=== PATIENT | male | born 1970 ===

== ENCOUNTER → 2016-04-05 | Outpatient (CLI) | payer BC ==
--- NOTE | 2016-04-05 13:34 | US ---
EXAMINATION TYPE: US thyroid st tissue head/neck DATE OF EXAM: 04/05/2016 1:21 PM COMPARISON: NONE CLINICAL HISTORY: R59.0 localized lymph nodes enlarged. Left lateral neck soreness, palpable area Findings: Area of palpable lump and soreness scanned. At palpable area, enlarged lymph node seen = 2 .0 x 0.8 x 0.6 cm. Contralateral image taken. Area of soreness scanned, no abnormality seen. IMPRESSION: Lymph node left neck at the site of clinical concern with short axis measurement being w ithin the normal range.
== END ==
LOC: RADUSWWP 12:56
PROVIDERS: ATTEND Physician Assistant
DX: R59.0 Localized enlarged lymph nodes (principal)
CPT/HCPCS: 76536

== ENCOUNTER → 2016-05-31 | Outpatient (CLI) | payer BC | END | disposition home or self-care (01) | LOC: PTMAIN 15:29 | PROVIDERS: ATTEND Otolaryngology | DX: J37.0 Chronic laryngitis (principal) | CPT/HCPCS: 31579 ==

== ENCOUNTER → 2016-05-31 | Outpatient (CLI) | payer BC ==
--- NOTE | 2016-05-31 17:12 | CT ---
EXAMINATION TYPE: CT soft tissue neck w con DATE OF EXAM: 05/31/2016 4:09 PM COMPARISON: NONE HISTORY: Hoarseness and throat soreness CT DLP: 879 mGycm CONTRAST: Patient injected with 100 mL of Omnipaque 300. TECHNIQUE: Axial images at 3 mm thick sections. Reconstructed images in the coronal plane and sagitt al plane are reviewed. FINDINGS: Limited CT sections are obtained the lung apices. The lung apices appear clear. CT neck: The torus tubarius and fossa of Rosenmuller are normal. Clothing Sales Assistant spaces are normal. Para nasal sinuses and mastoid air cells are clear. Parotid glands appear normal and symmetrical. Submandibular glands, are normal. Parapharyngeal spac es are normal. No suspicious adenopathy is evident. The hypopharynx appears within normal limits. Vocal cord level appear symmetrical. Thyroid as visualized is normal. Osseous structures are normal. No suspicious masses identified within the neck. IMPRESSIONS: 1. Normal CT neck
== END | disposition home or self-care (01) ==
LOC: RADCTMAIN 15:51
PROVIDERS: ATTEND Otolaryngology
DX: R22.1 Localized swelling, mass and lump, neck (principal)
CPT/HCPCS: 70491; Q9967

== ENCOUNTER 2016-06-10 09:22 | Day surgery (SDC) | payer BC ==
[2016-06-07 08:45] VITALS: BMI 34.0
--- NOTE | 2016-06-10 07:08 | HP ---
DATE OF ADMISSION: CHIEF COMPLAINT: Chronic laryngitis. HISTORY OF PRESENT ILLNESS: The patient is a pleasant 46-year-old male who was recently seen in my office complaining of having intermittent loss of his voice. The patient states that he constantly clears his throat because of the excessive mucus/phlegm. In addition to this, he has had episodes of intermittent hoarseness for the past 6 months and in some cases, he states he has completely lost his voice. He smokes approximately 1 pack of cigarettes per day but has recently stopped smoking and was advised to permanently quit for obvious health reasons. At the time the patient was seen in my office, clinical examination which included indirect laryngoscopy and also a video stroboscopy revealed evidence of a suspicious lesion along the right true vocal cord posteriorly. Because of the patient's history of heavy smoking it was recommend he undergo a suspension microlaryngoscopy with biopsy and CO2 laser of this lesion under general anesthesia. Past medical history reveals he has an ALLERGY TO MORPHINE. Current medications include Zyban that is to help stop smoking, and Lunesta. The review of systems is completely unremarkable. The patient also states he has ALLERGY TO SULFA. Previous surgeries include cervical fusion, lower back laminectomy, and colonoscopy. Patient is a very pleasant 46-year-old male who is alert and cooperative. HEENT EXAMINATION: Patient is normocephalic. Tympanic membranes are normal. Middle ear spaces are free of any fluid or infection. Pupils are equal, round, and reactive to light and accommodation. Extraocular movements are within normal. Intranasal examination reveals severe septal deviation to the left with compensatory hypertrophy of the inferior turbinates bilaterally. Oropharynx including indirect laryngoscopy is as described above with respect to the fact that there is a suspicious lesion on the right true vocal cord posteriorly. Palpation of the neck, cranial nerves II through XII and remainder of the head and neck exam are all within normal limits. Chest/cardiovascular: Both lung frankel are clear to percussion and auscultation. Patient is in regular sinus rhythm. S1 and S2 are present without any murmurs, S3s or S4s. Peripheral pulses are bilaterally symmetrical and within normal limits. ABDOMEN: There is no evidence of any masses, megaly or tenderness. The abdomen is soft. Skin is unremarkable. Musculoskeletal and neurological are within normal limits. Rectal examination: The rectal exam is deferred at this time as the patient has done a regular basis at his family physician's office. The remainder of physical exam is unremarkable. IMPRESSION: Chronic laryngitis with laryngeal lesion of the right true vocal cord. PLAN: The patient is scheduled undergo a suspension microlaryngoscopy with biopsy and laser of lesion of the right true vocal cord under general anesthesia. Attention RNs in the presurgical area: I have not ordered nor has my office ordered any presurgical prophylactic antibiotics for this patient. The only medication that I have ordered presurgically is for this patient to receive 1000 mg of Ofirmev which is to be given once an intravenous line has been established. If the pharmacy department sends any presurgical prophylactic antibiotics to the presurgical area for this patient, they should be returned and the patient's account should be credited appropriately. I have explained the operation/procedure to the patient, including the risks, benefits, side effects, alternative therapies (including not receiving the proposed treatment or service), the likelihood of the patient achieving his/her goals, and potential recuperation problems for the procedure/sedation/analgesia, as well as any blood products, if indicated. I also explained to the patient the risks, benefits, and side effects of the alternatives, as well as the risks related to not receiving the proposed procedure, care treatment or services.
[~2016-06-10 09:22] MED LIST: DEXAMETHASONE SOD PHOSPHATE 10 MG/ML 1 ML VIAL IV ONE; HYDROmorphone 1 MG/ML 1 ML SYRINGE IVP PRN; LACTATED RINGERS 1,000 ML IV SCH; LIDOCAINE 1% 20 ML VIAL (10MG/ML) FOR IV START INTRADERMA PRN; MIDAZOLAM 2 MG/2 ML VIAL IV PRN; ONDANSETRON 4 MG/2 ML VIAL IVP ONE; Pre Op ABX Message 1 EACH MISC MISCELLANE ONE; SCOPOLAMINE 1.5MG/72HR PATCH TRANSDERM ONE
[2016-06-10 10:09] VITALS: TEMP 98
[2016-06-10] MEDS ORDERED: fentaNYL (PF) 50 MCG/ML 2 ML AMP ONE (10:49)
[2016-06-10] MEDS ORDERED: GLYCOPYRROLATE 0.2 MG/ML 2 ML VIAL ONE (10:49)
[2016-06-10] MEDS ORDERED: LIDOCAINE 1% INJ 10MG/ML (20 ML MDV) ONE (10:49)
[2016-06-10] MEDS ORDERED: DEXAMETHASONE SOD PHOS (MDV) 100 MG/10 ML VIAL ONE (10:49)
[2016-06-10] MEDS ORDERED: SUCCINYLCHOLINE CHLORIDE 100 MG/5 ML SYR IV ONE (10:49)
[2016-06-10] MEDS ORDERED: ROCURONIUM BROMIDE 10 MG/ML 10 ML VIAL IV ONE (10:49)
[2016-06-10] MEDS ORDERED: PROPOFOL 10 MG/ML 20 ML VIAL IV ONE (10:49)
[2016-06-10] MEDS ORDERED: NEOSTIGMINE 1 MG/ML 10 ML VIAL ONE (10:49)
[2016-06-10] MEDS ORDERED: MIDAZOLAM 2 MG/2 ML VIAL ONE (10:49)
[2016-06-10] MEDS ORDERED: ACETAMINOPHEN IV (For NPO) 1,000 MG in EMPTY BAG 1 BAG IVPB ONE (11:25)
[2016-06-10 12:20] VITALS: RESP 18
[2016-06-10 12:37] VITALS: BP 141/99; PULSE 69
--- NOTE | 2016-06-10 17:13 | OP ---
DATE OF SERVICE: 06/10/2016 SURGEON: JENI MELCHOR MD CEMENT MASON HELPER: PREOPERATIVE DIAGNOSIS: Suspicious polypoid lesion of the right anterior one third true vocal cord. POSTOPERATIVE DIAGNOSIS: Suspicious polypoid lesion of the anterior one third of the right true vocal cord; final pathology is pending. OPERATION: Suspension microlaryngoscopy with biopsy and CO2 laser of polyploid-like lesion of the right true vocal cord. ANESTHESIA: General. ESTIMATED BLOOD LOSS: SPECIMENS REMOVED: COMPLICATIONS: None. OPERATIVE PROCEDURE: The patient was placed on the operating table in supine position, and after uneventful induction and endotracheal intubation, satisfactory general anesthesia was obtained. Next, the patient was draped in the usual and customary fashion. Following this, the laryngoscope was introduced into the patient's oropharynx, and the entire hypopharynx, including the right and left piriform sinus, base of tongue, valleculae and epiglottis, were inspected and found to be free of any suspicious lesions. Following this, the tip of the laryngoscope was presented at the laryngeal introitus and next the Lewy apparatus was attached to the handle of the laryngoscope and the laryngoscope was then suspended on the patient's chest. Next, using the Zeiss operating microscope and under direct magnified vision, one could see that there was a rather large polypoid-like lesion located on the anterior third of the right true vocal cord near the anterior commissure. The lesion appeared to arise from the medial surface of the cord and extend to the underside of the right true vocal cord. Therefore, using up-biting microlaryngeal forceps and with multiple passes, several pieces of this lesion were obtained. These were sent in formalin to Pathology for permanent sectioning. The remaining portion of the lesion, which was mostly the base, was vaporized using the CO2 laser at the usual setting of approximately 7 ladd. Further inspection showed that the lesion had been completely removed. In addition to this, some of the eschar was removed with a pair of up-biting forceps. At this point there did not appear to be any remnants of the lesion, and therefore the procedure was terminated. During the procedure the patient was given a total of 10 mg of Decadron intraoperatively to reduce any postoperative laryngeal edema. The procedure was terminated. There were no intraoperative complications. The patient tolerated the procedure well and the patient was returned to the recovery room in satisfactory condition. Final pathology is pending.
== END 2016-06-10 12:44 | disposition home or self-care (01) ==
LOC: OR 09:22
PROVIDERS: ATTEND Otolaryngology
DX: J38.1 Polyp of vocal cord and larynx (principal); J37.0 Chronic laryngitis; F17.210 Nicotine dependence, cigarettes, uncomplicated; Z79.899 Other long term (current) drug therapy; Z88.5 Allergy status to narcotic agent; Z88.2 Allergy status to sulfonamides
CPT/HCPCS: 88305; 31536; J2250; J1100 ×2; J2710; J2405; J2001; J3010; J0131; J0330; J2704

== ENCOUNTER 2017-02-22 13:44 | Emergency (ER) | payer BC ==
[2017-02-22] MEDS ORDERED: IBUPROFEN 800 MG TAB PO STA (14:34)
--- NOTE | 2017-02-22 14:37 | ED ---
General Adult HPI - General Chief complaint: Abdominal Pain Stated complaint: Rt side pain Time Seen by Provider: 02/22/17 14:27 Source: patient, RN notes reviewed, old records reviewed Mode of arrival: ambulatory Limitations: no limitations - History of Present Illness Initial comments: 46-year-old male presents for evaluation of left flank pain and lower abdominal pain. Patient's pain began suddenly approximately 2-1/2 hours ago. Pain has come and gone, currently 3 out of 10 and tolerable. Pain was severe at the onset, sharp. Patient also had some nausea, no vomiting. No preceding fever or chills. No change in bowels. Patient has past medical history of kidney stone several years ago, this was on the right. Patient is not currently on any medication. - Related Data Home Medications Medication Instructions Recorded Confirmed Eszopiclone [Lunesta] 3 mg PO HS 06/07/16 02/22/17 Ibuprofen [Advil] 800 mg PO Q8HR PRN 06/07/16 02/22/17 Previous Rx's Medication Instructions Recorded Ibuprofen [Motrin] 600 mg PO Q8HR PRN #24 tab 02/22/17 Allergies Allergy/AdvReac Type Severity Reaction Status Date / Time morphine Allergy Rash/Hives Verified 02/22/17 14:23 Review of Systems ROS Statement: Those systems with pertinent positive or pertinent negative responses have been documented in the HPI. ROS Other: All systems not noted in ROS Statement are negative. Past Medical History Past Medical History: No Reported History Additional Past Medical History / Comment(s): Recently having hoarseness and throat discomfort. History of Any Multi-Drug Resistant Organisms: None Reported Past Surgical History: Back Surgery, Orthopedic Surgery Additional Past Surgical History / Comment(s): Neck and ankle surgery with plates. Past Anesthesia/Blood Transfusion Reactions: No Reported Reaction Past Psychological History: No Psychological Hx Reported Smoking Status: Current every day smoker Past Alcohol Use History: None Reported Past Drug Use History: None Reported - Past Family History Mother Family Medical History: No Reported History Father Family Medical History: Cancer Additional Family Medical History / Comment(s): Prostate cancer General Exam Limitations: no limitations Head exam: Present: atraumatic, normocephalic Eye exam: Present: normal appearance, PERRL ENT exam: Present: normal exam Neck exam: Present: normal inspection. Absent: tenderness, meningismus Respiratory exam: Present: normal lung sounds bilaterally. Absent: respiratory distress, wheezes Cardiovascular Exam: Present: regular rate, normal rhythm, bradycardia GI/Abdominal exam: Present: soft. Absent: distended, tenderness, guarding Extremities exam: Present: normal inspection, full ROM, normal capillary refill. Absent: pedal edema Back exam: Present: normal inspection. Absent: tenderness, CVA tenderness (R), CVA tenderness (L) Neurological exam: Present: alert, oriented X3, CN II-XII intact. Absent: motor sensory deficit Psychiatric exam: Present: normal affect, normal mood Skin exam: Present: warm, dry, intact. Absent: cyanosis, diaphoretic Course Vital Signs 02/22/17 14:16 Temperature 98.4 F Pulse Rate 61 Respiratory 16 Rate Blood Pressure 169/103 O2 Sat by Pulse 99 Oximetry Medical Decision Making - Medical Decision Making 46-year-old male presenting with left flank pain. Patient does not want an IV or IV pain medication. History is consistent with nephrolithiasis. CT is obtained, shows a 9.4 mm stone in the left renal calyx, no obstructing stones, patient likely passed small stone prior to CT. He is nearly pain-free in the emergency department. He is given a urine strainer and will follow-up with urology. He is instructed that this 9.4 mm stone will likely not pass on its own. - Lab Data Lab Results 02/22/17 Range/Units 14:27 Urine Color Yellow Urine Appearance Clear (Clear) Urine pH 5.0 (5.0-8.0) Ur Specific [place] 1.014 (1.001-1.035) Urine Protein Negative (Negative) Urine Glucose (UA) Negative (Negative) Urine Ketones Negative (Negative) Urine Blood Small H (Negative) Urine Nitrite Negative (Negative) Urine Bilirubin Negative (Negative) Urine Urobilinogen <2.0 (<2.0) mg/dL Ur Leukocyte Esterase Negative (Negative) Urine RBC 6 H (0-5) /hpf Urine WBC <1 (0-5) /hpf Amorphous Sediment Rare H (None) /hpf Hyaline Casts 3 H (0-2) /lpf Urine Mucus Rare H (None) /hpf Disposition Clinical Impression: Calculus of kidney Disposition: HOME SELF-CARE Condition: Good Instructions: Kidney Stones (ED) Prescriptions: Ibuprofen [Motrin] 600 mg PO Q8HR PRN #24 tab PRN Reason: Pain Referrals: Sp Connors DO [Primary Care Provider] - 1-2 days Qasim Cam MD [STAFF PHYSICIAN] - 1-2 days Time of Disposition: 15:42
[2017-02-22 14:54] LABS: Amorphous Sediment,Urine Rare /hpf; Appearance,Urine Clear (Clear); Bilirubin,Urine Negative (Negative); Blood,Urine Small (Negative); Color,Urine Yellow; Glucose,Urine (UA) Negative (Negative); Hyaline Casts,Urine 3 /lpf (0-2); Ketones,Urine Negative (Negative); Leukocyte Esterase,Urine Negative (Negative); Mucus,Urine Rare /hpf; Nitrite,Urine Negative (Negative); Protein,Urine Negative (Negative); RBC,Urine 6 /hpf (0-5); Specific Gravity,Urine 1.014 (1.001-1.035); Urobilinogen,Urine <2.0 mg/dL (<2.0); WBC,Urine <1 /hpf (0-5)
--- NOTE | 2017-02-22 15:28 | CT ---
EXAMINATION TYPE: CT abdomen pelvis wo con DATE OF EXAM: 02/22/2017 COMPARISON: NONE HISTORY: Right flank pain CT DLP: 1224 mGycm Automated exposure control for dose reduction was used. TECHNIQUE: Helical acquisition of images was performed from the lung bases through the pelvis. FINDINGS: LUNG BASES: No significant abnormality is appreciated. LIVER/GB: No significant abnormality is appreciated. PANCREAS: No significant abnormality is seen. SPLEEN: No significant abnormality is seen. ADRENALS: No significant abnormality is seen. KIDNEYS: Multiple nonobstructing calculi identified within the left kidney. The largest of which is w ithin an interpolar calyx measuring 9.4 mm. There is also at least one or 2 smaller calculi identifie d in the superior pole calyces. No hydronephrosis is identified. The appearance of the right kidney i s unremarkable. There is no nephrolithiasis, hydronephrosis or other abnormality identified. FREE AIR: No free air is visualized RETROPERITONEAL ADENOPATHY: None visualized REPRODUCTIVE ORGANS: No significant abnormality is seen URINARY BLADDER: No significant abnormality is seen. PELVIC ADENOPATHY: None visualized. OSSEOUS STRUCTURES: No significant abnormality is seen. BOWEL: No significant abnormality is seen. The appendix is visualized and is normal OTHER: None IMPRESSION: NONOBSTRUCTING NEPHROLITHIASIS IS IDENTIFIED IN THE LEFT KIDNEY. THE APPENDIX IS VISUALIZED, AND IS NORMAL.
[2017-02-22 16:09] VITALS: BP 154/78; PULSE 57; RESP 17; TEMP 98.7
== END 2017-02-22 16:08 | disposition home or self-care (01) ==
LOC: EC 13:44
DX: N20.0 Calculus of kidney (principal); R00.1 Bradycardia, unspecified; F17.200 Nicotine dependence, unspecified, uncomplicated; Z88.5 Allergy status to narcotic agent; Z79.899 Other long term (current) drug therapy
CPT/HCPCS: 74176; 81001; 99284

== ENCOUNTER 2017-02-24 07:49 | Emergency (ER) | payer BC ==
[2017-02-24 07:57] VITALS: TEMP 97.3
[2017-02-24] MEDS ORDERED: ONDANSETRON 4 MG/2 ML VIAL IVP STA (08:41)
[2017-02-24] MEDS ORDERED: KETOROLAC 60 MG/2 ML VIAL IVP STA (08:41)
[2017-02-24] MEDS ORDERED: HYDROmorphone 2 MG/ML 1 ML SYRINGE IVP STA (08:41)
[2017-02-24 08:49] LABS: Basophils # (A) 0.1 k/uL (0-0.2); Basophils % (A) 1 %; Eosinophils # (A) 0.3 k/uL (0-0.7); Eosinophils % (A) 3 %; HCT 51.8 % (39.0-53.0); HGB 18.6 gm/dL (13.0-17.5); Lymphocytes # (A) 2.1 k/uL (1.0-4.8); Lymphocytes % (A) 21 %; MCH 31.6 pg (25.0-35.0); MCHC 35.9 g/dL (31.0-37.0); Mean Platelet Volume 7.2; Monocytes # (A) 0.4 k/uL (0-1.0); Monocytes % (A) 4 %; Neutrophils # (A) 6.8 k/uL (1.3-7.7); Neutrophils % (A) 70 %; Platelet Count 309 k/uL (150-450); RBC 5.88 m/uL (4.30-5.90); WBC 9.8 k/uL (3.8-10.6)
[2017-02-24 08:53] LABS: Appearance,Urine Clear (Clear); Bilirubin,Urine Negative (Negative); Blood,Urine Moderate (Negative); Color,Urine Yellow; Glucose,Urine (UA) Negative (Negative); Ketones,Urine Negative (Negative); Leukocyte Esterase,Urine Negative (Negative); Mucus,Urine Few /hpf; Nitrite,Urine Negative (Negative); PH, Urine 5.5 (5.0-8.0); Protein,Urine Trace (Negative); RBC,Urine 11 /hpf (0-5); Specific Gravity,Urine 1.023 (1.001-1.035); Urobilinogen,Urine <2.0 mg/dL (<2.0); WBC,Urine 2 /hpf (0-5)
--- NOTE | 2017-02-24 08:56 | ED ---
General Adult HPI - General Chief complaint: Abdominal Pain Stated complaint: POSS KIDNEY STONE Time Seen by Provider: 02/24/17 07:50 Source: patient, RN notes reviewed Mode of arrival: ambulatory Limitations: no limitations - History of Present Illness Initial comments: This is a 46-year-old male who presents emergency Department complaining of having been diagnosed with a kidney stone on Friday. Patient states the pain is gotten worse and he has come back in because he cannot stand the pain at this time. Patient states on the left side radiating down to his lower abdomen. Patient states he spoke with urology and they said they had lithotripsy in the area soon. Patient states she's been somewhat nauseated but has not vomited. Patient denies any fever or chills patient denies any diarrhea. - Related Data Home Medications Medication Instructions Recorded Confirmed Eszopiclone [Lunesta] 3 mg PO HS 06/07/16 02/24/17 Previous Rx's Medication Instructions Recorded Ibuprofen [Motrin] 600 mg PO Q8HR PRN #24 tab 02/22/17 Allergies Allergy/AdvReac Type Severity Reaction Status Date / Time morphine Allergy Rash/Hives Verified 02/24/17 08:06 Review of Systems ROS Statement: Those systems with pertinent positive or pertinent negative responses have been documented in the HPI. ROS Other: All systems not noted in ROS Statement are negative. Past Medical History Past Medical History: No Reported History Additional Past Medical History / Comment(s): Recently having hoarseness and throat discomfort. kidney stones History of Any Multi-Drug Resistant Organisms: None Reported Past Surgical History: Back Surgery, Orthopedic Surgery Additional Past Surgical History / Comment(s): Neck and ankle surgery with plates. Past Anesthesia/Blood Transfusion Reactions: No Reported Reaction Past Psychological History: No Psychological Hx Reported Smoking Status: Current every day smoker Past Alcohol Use History: None Reported Past Drug Use History: None Reported - Past Family History Mother Family Medical History: No Reported History Father Family Medical History: Cancer Additional Family Medical History / Comment(s): Prostate cancer General Exam - General Exam Comments Initial Comments: GENERAL: Patient is well-developed and well-nourished. Patient is nontoxic and well- hydrated and is in mild distress. ENT: Neck is soft and supple. No significant lymphadenopathy is noted. Oropharynx is clear. Moist mucous membranes. Neck has full range of motion without eliciting any pain. EYES: The sclera were anicteric and conjunctiva were pink and moist. Extraocular movements were intact and pupils were equal round and reactive to light. Eyelids were unremarkable. PULMONARY: Unlabored respirations. Good breath sounds bilaterally. No audible rales rhonchi or wheezing was noted. CARDIOVASCULAR: There is a regular rate and rhythm without any murmurs gallops or rubs. ABDOMEN: Soft and nontender with normal bowel sounds. No palpable organomegaly was noted. There is no palpable pulsatile mass. SKIN: Skin is clear with no lesions or rashes and otherwise unremarkable. NEUROLOGIC: Patient is alert and oriented x3. Cranial nerves II through XII are grossly intact. Motor and sensory are also intact. Normal speech, volume and content. Symmetrical smile. MUSCULOSKELETAL: Normal extremities with adequate strength and full range of motion. No lower extremity swelling or edema. No calf tenderness. LYMPHATICS: No significant lymphadenopathy is noted PSYCHIATRIC: Normal psychiatric evaluation. Normal interpersonal interactions appears functionally intact in deals appropriately with others. No signs of depression. No signs of anxiety. Limitations: no limitations Course Vital Signs 02/24/17 02/24/17 07:53 09:06 Temperature 97.3 F L Pulse Rate 59 L 56 L Respiratory 18 16 Rate Blood Pressure 151/91 147/97 O2 Sat by Pulse 97 95 Oximetry Medical Decision Making - Medical Decision Making Patient's x-ray shows a kidney stone on the left that appears to be slightly removed from where it was before. I spoke with Dr. Duke he wants to see the patient to do lithotripsy is afternoon. Patient will be back at 2:00 to go to [facility] more outpatient. - Lab Data Result diagrams: 02/24/17 08:30 02/24/17 08:30 Lab Results 02/24/17 02/24/17 02/24/17 Range/Units 08:30 08:30 08:30 WBC 9.8 (3.8-10.6) k/uL RBC 5.88 (4.30-5.90) m/uL Hgb 18.6 H (13.0-17.5) gm/dL Hct 51.8 (39.0-53.0) % MCV 88.0 (80.0-100.0) fL MCH 31.6 (25.0-35.0) pg MCHC 35.9 (31.0-37.0) g/dL RDW 14.0 (11.5-15.5) % Plt Count 309 (150-450) k/uL Neutrophils % 70 % Lymphocytes % 21 % Monocytes % 4 % Eosinophils % 3 % Basophils % 1 % Neutrophils # 6.8 (1.3-7.7) k/uL Lymphocytes # 2.1 (1.0-4.8) k/uL Monocytes # 0.4 (0-1.0) k/uL Eosinophils # 0.3 (0-0.7) k/uL Basophils # 0.1 (0-0.2) k/uL Sodium 140 (137-145) mmol/L Potassium 4.7 (3.5-5.1) mmol/L Chloride 108 H (98-107) mmol/L Carbon Dioxide 22 (22-30) mmol/L Anion Gap 10 mmol/L BUN 16 (9-20) mg/dL Creatinine 1.01 (0.66-1.25) mg/dL Est GFR (MDRD) Af Amer >60 (>60 ml/min/1.73 sqM) Est GFR (MDRD) Non-Af >60 (>60 ml/min/1.73 sqM) Glucose 100 H (74-99) mg/dL Calcium 10.0 (8.4-10.2) mg/dL Total Bilirubin 1.1 (0.2-1.3) mg/dL AST 54 (17-59) U/L ALT 86 H (21-72) U/L Alkaline Phosphatase 80 (38-126) U/L Total Protein 6.8 (6.3-8.2) g/dL Albumin 4.0 (3.5-5.0) g/dL Amylase 53 (30-110) U/L Lipase 82 (23-300) U/L Urine Color Yellow Urine Appearance Clear (Clear) Urine pH 5.5 (5.0-8.0) Ur Specific [place] 1.023 (1.001-1.035) Urine Protein Trace H (Negative) Urine Glucose (UA) Negative (Negative) Urine Ketones Negative (Negative) Urine Blood Moderate H (Negative) Urine Nitrite Negative (Negative) Urine Bilirubin Negative (Negative) Urine Urobilinogen <2.0 (<2.0) mg/dL Ur Leukocyte Esterase Negative (Negative) Urine RBC 11 H (0-5) /hpf Urine WBC 2 (0-5) /hpf Urine Mucus Few H (None) /hpf Disposition Clinical Impression: Calculus of kidney Disposition: HOME SELF-CARE Instructions: Kidney Stones (ED) Referrals: Sp Connors DO [Primary Care Provider] - 1-2 days Time of Disposition: 10:03
[2017-02-24 08:58] LABS: ALT 86 U/L (21-72); AST 54 U/L (17-59); Alkaline Phosphatase 80 U/L (38-126); Amylase 53 U/L (30-110); Anion Gap 10 mmol/L; Blood Urea Nitrogen 16 mg/dL (9-20); Carbon Dioxide 22 mmol/L (22-30); Chloride 108 mmol/L (98-107); Glucose 100 mg/dL (74-99); Lipase 82 U/L (23-300); Potassium 4.7 mmol/L (3.5-5.1); Sodium 140 mmol/L (137-145); Total Bilirubin 1.1 mg/dL (0.2-1.3); Total Protein 6.8 g/dL (6.3-8.2)
[2017-02-24 09:12] VITALS: PULSE 56; RESP 16
--- NOTE | 2017-02-24 09:25 | XR ---
EXAMINATION TYPE: XR KUB DATE OF EXAM: 02/24/2017 COMPARISON: NONE HISTORY: Pain TECHNIQUE: Single supine KUB image of the abdomen is obtained FINDINGS: Small bowel demonstrates no evidence for dilatation or air fluid levels. Gas and fecal material is seen in non-distended colon. No convincing evidence for pneumoperitoneum. 7 mm left renal calculus noted. The lung bases are clear. The osseous structures are intact. IMPRESSION: 1. Overall nonobstructive bowel gas pattern.
[2017-02-24 10:04] VITALS: BP 145/80
[2017-02-24] MEDS ORDERED: HYDROcodone/APAP 5-325MG 1 EACH TAB PO STA (10:04)
[2017-02-24 10:21] LABS: INR 1.2 (<1.2); Prothrombin Time 11.1 sec (9.0-12.0)
--- NOTE | 2017-02-24 15:15 | P.GSHP ---
History of Present Illness H&P Date: 02/24/17 Chief Complaint: Left flank pain The patient originally developed left flank pain on 02/22/2017. The pain was associated with nausea but no vomiting. He presented to the [facility] ER and was noted to have microscopic hematuria. Computed tomography scan of the abdomen and pelvis without IV contrast confirmed a 6 x 8 mm calculus in the mid pole of the left kidney and a 3 mm calculus in the upper pole of the left kidney. There was no evidence of hydronephrosis. The patient's pain improved while he was in the emergency room and it was presumed that he may have passed a calculus prior to coming to the emergency room. The patient was discharged and felt well until early this 3 o'clock this morning when he again experienced severe left flank pain. He returned to the emergency room and a KUB appeared to show the 6 x 8 mm left renal calculus was closer to the ureteropelvic junction. In view of the persistence of the pain the patient has elected to proceed with ESWL treatment. - Constitutional Constitutional: Denies chills, Denies fever - Cardiovascular Cardiovascular: Denies chest pain - Respiratory Respiratory: Denies cough - Gastrointestinal Gastrointestinal: Reports heartburn - Genitourinary (Female) Genitourinary: Reports as per HPI Past Medical History Past Medical History: No Reported History, Cancer (Diagnosed with prostate cancer in 2014 and has been followed with active surveillance. The patient sees Dr. Wilburn.) Additional Past Medical History / Comment(s): Recently having hoarseness and throat discomfort. kidney stones History of Any Multi-Drug Resistant Organisms: None Reported Past Surgical History: Back Surgery, Orthopedic Surgery Additional Past Surgical History / Comment(s): Neck and ankle surgery with plates. Cervical fusion and lumbar disc Past Anesthesia/Blood Transfusion Reactions: No Reported Reaction Past Psychological History: No Psychological Hx Reported Smoking Status: Current every day smoker (Has smoked 1 pack per day for 20 years but says he wants to quit) Past Alcohol Use History: None Reported Past Drug Use History: None Reported - Past Family History Mother Family Medical History: No Reported History Father Family Medical History: Cancer Additional Family Medical History / Comment(s): Prostate cancer Medications and Allergies Home Medications Medication Instructions Recorded Confirmed Type Eszopiclone [Lunesta] 3 mg PO HS 04/28/17 01/15/18 History Ibuprofen [Motrin] 600 mg PO Q8HR PRN #24 tab 02/22/17 02/24/17 Rx Allergies Allergy/AdvReac Type Severity Reaction Status Date / Time morphine Allergy Rash/Hives Verified 02/24/17 08:06 Surgical - Exam Vital Signs Temp Pulse Resp BP Pulse Ox 97.3 F L 59 L 18 151/91 97 02/24/17 07:53 02/24/17 07:53 02/24/17 07:53 02/24/17 07:53 02/24/17 07:53 - General well developed, well nourished, no pain - Neck no lymphadectomy - Respiratory normal expansion, clear to auscultation - Cardiovascular Rhythm: regular Abnormal Heart Sounds: no systolic murmur - Abdomen Abdomen: soft, non tender, no organomegaly - Genitourinary normal penis with no external lesions, testicles non-tender - Psychiatric memory intact Results - Labs 02/24/17 08:30 02/24/17 08:30 Abnormal Lab Results - Last 24 Hours (Table) 02/24/17 02/24/17 02/24/17 Range/Units 08:30 08:30 08:30 Hgb 18.6 H (13.0-17.5) gm/dL Chloride 108 H (98-107) mmol/L Glucose 100 H (74-99) mg/dL ALT 86 H (21-72) U/L Urine Protein Trace H (Negative) Urine Blood Moderate H (Negative) Urine RBC 11 H (0-5) /hpf Urine Mucus Few H (None) /hpf Diabetes panel 02/24/17 Range/Units 08:30 Sodium 140 (137-145) mmol/L Potassium 4.7 (3.5-5.1) mmol/L Chloride 108 H (98-107) mmol/L Carbon Dioxide 22 (22-30) mmol/L BUN 16 (9-20) mg/dL Creatinine 1.01 (0.66-1.25) mg/dL Glucose 100 H (74-99) mg/dL Calcium 10.0 (8.4-10.2) mg/dL AST 54 (17-59) U/L ALT 86 H (21-72) U/L Alkaline Phosphatase 80 (38-126) U/L Total Protein 6.8 (6.3-8.2) g/dL Albumin 4.0 (3.5-5.0) g/dL Calcium panel 02/24/17 Range/Units 08:30 Calcium 10.0 (8.4-10.2) mg/dL Albumin 4.0 (3.5-5.0) g/dL Pituitary panel 02/24/17 Range/Units 08:30 Sodium 140 (137-145) mmol/L Potassium 4.7 (3.5-5.1) mmol/L Chloride 108 H (98-107) mmol/L Carbon Dioxide 22 (22-30) mmol/L BUN 16 (9-20) mg/dL Creatinine 1.01 (0.66-1.25) mg/dL Glucose 100 H (74-99) mg/dL Calcium 10.0 (8.4-10.2) mg/dL Adrenal panel 02/24/17 Range/Units 08:30 Sodium 140 (137-145) mmol/L Potassium 4.7 (3.5-5.1) mmol/L Chloride 108 H (98-107) mmol/L Carbon Dioxide 22 (22-30) mmol/L BUN 16 (9-20) mg/dL Creatinine 1.01 (0.66-1.25) mg/dL Glucose 100 H (74-99) mg/dL Calcium 10.0 (8.4-10.2) mg/dL Total Bilirubin 1.1 (0.2-1.3) mg/dL AST 54 (17-59) U/L ALT 86 H (21-72) U/L Alkaline Phosphatase 80 (38-126) U/L Total Protein 6.8 (6.3-8.2) g/dL Albumin 4.0 (3.5-5.0) g/dL - Imaging Abdominal x-ray: image reviewed (KUB today shows a 6 x 8 mm calculus in the region of the left ureteropelvic junction.) CT scan - abdomen: image reviewed (Computed tomography scan on identified a 6 x 8 mm calculus in the midportion of the left kidney but no hydronephrosis. A nonobstructive 3 mm calculus was noted in the upper pole of the left kidney.) Assessment and Plan Assessment: The patient appears to be experiencing intermittent left flank pain secondary to a 6 x 8 mm calculus which currently is located in the region of the left ureteral pelvic junction. In view of the severity and persistence of his pain he wishes to proceed with treatment via ESWL. I reviewed the procedure and risks with the patient and his including anesthesia, bleeding, inability to fragment the calculus and ureteral obstruction from a calculus fragment. (1) Calculus of kidney Status: Acute Code(s): N20.0 - CALCULUS OF KIDNEY SNOMED Code(s): 33762063
== END 2017-02-24 10:26 | disposition home or self-care (01) ==
LOC: EC 07:49
DX: N20.0 Calculus of kidney (principal); F17.200 Nicotine dependence, unspecified, uncomplicated; Z79.899 Other long term (current) drug therapy; Z88.5 Allergy status to narcotic agent
CPT/HCPCS: 36415; 80053; 82150; 83690; 85025; 85610; 85730; 81001; 74018; 99284; 96374; 96375 ×2; J1170; J2405; J1885

== ENCOUNTER 2017-02-24 13:57 | Day surgery (SDC) | payer BC ==
[2017-02-24 14:18] VITALS: RESP 16; TEMP 97.3
[2017-02-24] MEDS ORDERED: LIDOCAINE 1% 20 ML VIAL (10MG/ML) FOR IV START INTRADERMA ONE (14:36)
[2017-02-24] MEDS ORDERED: LACTATED RINGERS 1,000 ML IV ONE (14:36)
[2017-02-24] MEDS ORDERED: fentaNYL (PF) 50 MCG/ML 2 ML AMP IVP ONE (15:47)
[2017-02-24] MEDS ORDERED: PROPOFOL 10 MG/ML 20 ML VIAL IV ONE (15:58)
[2017-02-24] MEDS ORDERED: fentaNYL (PF) 50 MCG/ML 2 ML AMP ONE (15:58)
[2017-02-24] MEDS ORDERED: LIDOCAINE 1% INJ 10MG/ML (20 ML MDV) ONE (15:58)
[2017-02-24] MEDS ORDERED: KETAMINE 10 MG/ML 20 ML VIAL ONE (15:58)
[2017-02-24] MEDS ORDERED: MIDAZOLAM 2 MG/2 ML VIAL ONE (15:58)
[2017-02-24] MEDS ORDERED: GLYCOPYRROLATE 0.2 MG/ML 2 ML VIAL ONE (15:58)
--- NOTE | 2017-02-24 16:50 | P.OP ---
Date of Procedure: 02/24/17 Preoperative Diagnosis: Left renal calculus Postoperative Diagnosis: Left renal calculus Procedure(s) Performed: Extracorporeal shockwave lithotripsy of left renal calculus Anesthesia: MAC Surgeon: Geovani Duke Estimated Blood Loss (ml): 0 Pathology: none sent Condition: stable Disposition: PACU Indications for Procedure: The patient is a 46-year-old male with a history of left flank pain which has required 2 separate emergency room visits over the last 48 hours. Computed tomography scan identified a 6 x 7 mm calculus which currently appears to be located at the ureteropelvic junction. Due to the persistence of the patient's pain he has requested ESWL for treatment. Description of Procedure: The patient was taken to the operating suite where he was placed in the supine position on the fluoroscopy table. His left renal calculus was localized using biplanar fluoroscopy. Intravenous sedation was given. Lithotripsy was performed using the Dornier compact delta unit. The patient was given 2500 shocks at 60 shocks per minute, gradually going up to level 5. A 2 minute pause was taken after 200 shocks. There appeared to be good fragmentation of the calculus. The patient tolerated the procedure well and left the operating room in satisfactory condition. He will be seen by Dr Cam on 02/28 at which time a KUB will be repeated.
[2017-02-24 17:22] VITALS: BP 146/91; PULSE 70
== END 2017-02-24 17:38 | disposition home or self-care (01) ==
LOC: ORWHC2ENDO 13:57
PROVIDERS: ATTEND Urology
DX: N20.0 Calculus of kidney (principal); G47.33 Obstructive sleep apnea (adult) (pediatric); Z85.46 Personal history of malignant neoplasm of prostate; F17.210 Nicotine dependence, cigarettes, uncomplicated; Z79.899 Other long term (current) drug therapy; Z88.5 Allergy status to narcotic agent
CPT/HCPCS: 50590; J2250; J2001; J3010; J2704

== ENCOUNTER 2017-02-27 09:44 | Emergency (ER) | payer BC ==
[2017-02-27] MEDS ORDERED: KETOROLAC 30 MG/ML 1 ML VIAL IVP STA ×2 (10:25→10:53)
[2017-02-27] MEDS ORDERED: ONDANSETRON 4 MG/2 ML VIAL IVP STA (10:25)
[2017-02-27] MEDS ORDERED: SODIUM CHLORIDE 0.9% 1,000 ML IV ONE (10:27)
--- NOTE | 2017-02-27 10:39 | ED ---
Abdominal Pain HPI - General Chief Complaint: Abdominal Pain Stated Complaint: Kidney stones Time Seen by Provider: 02/27/17 10:26 Source: patient, RN notes reviewed Mode of arrival: ambulatory Limitations: no limitations - History of Present Illness Initial Comments: This is a 46-year-old male with a history of a kidney stone on the left that he had lithotripsy 3 days ago who states he started having pain this morning that is 9/10 sharp left flank gradient to his left lower quadrant of his abdomen. Since some nausea no overt vomiting no fevers chills or sweats. He states his kidney stones 1 cm in diameter before he was treated. Patient is complaining currently also of some facial tingling as well as tingling to his fingers and hands. He was noted to be hyperventilating. MD Complaint: flank pain - Related Data Home Medications Medication Instructions Recorded Confirmed Eszopiclone [Lunesta] 3 mg PO HS 06/07/16 02/27/17 Previous Rx's Medication Instructions Recorded Ibuprofen [Motrin] 600 mg PO Q8HR PRN #24 tab 02/22/17 HYDROcodone/APAP 5-325MG [Anselmo 1 tab PO Q6HR PRN #10 tab 02/24/17 5-325] Tamsulosin [Flomax] 0.4 mg PO DAILY #14 cap 02/24/17 Allergies Allergy/AdvReac Type Severity Reaction Status Date / Time morphine Allergy Rash/Hives Verified 02/27/17 10:09 Review of Systems ROS Statement: Those systems with pertinent positive or pertinent negative responses have been documented in the HPI. ROS Other: All systems not noted in ROS Statement are negative. Past Medical History Past Medical History: No Reported History Additional Past Medical History / Comment(s): Recently having hoarseness and throat discomfort. History of Any Multi-Drug Resistant Organisms: None Reported Past Surgical History: Back Surgery, Orthopedic Surgery Additional Past Surgical History / Comment(s): Neck and ankle surgery with plates. Past Anesthesia/Blood Transfusion Reactions: No Reported Reaction Past Psychological History: No Psychological Hx Reported Smoking Status: Current every day smoker Past Alcohol Use History: None Reported Past Drug Use History: None Reported - Past Family History Mother Family Medical History: No Reported History Father Family Medical History: Cancer Additional Family Medical History / Comment(s): Prostate cancer General Exam - General Exam Comments Initial Comments: This is a well-developed well-nourished awake alert oriented times 3 male. The patient was noted to be hyperventilating. Limitations: no limitations General appearance: alert, anxious, in distress Head exam: Present: atraumatic, normocephalic, normal inspection Eye exam: Present: normal appearance, PERRL, EOMI. Absent: scleral icterus, conjunctival injection, periorbital swelling ENT exam: Present: normal exam, mucous membranes moist Neck exam: Present: normal inspection. Absent: tenderness, meningismus, lymphadenopathy Respiratory exam: Present: normal lung sounds bilaterally. Absent: respiratory distress, wheezes, rales, rhonchi, stridor Cardiovascular Exam: Present: regular rate, normal rhythm, normal heart sounds. Absent: systolic murmur, diastolic murmur, rubs, gallop, clicks GI/Abdominal exam: Present: soft, normal bowel sounds. Absent: distended, tenderness, guarding, rebound, rigid Extremities exam: Present: normal inspection, full ROM, normal capillary refill. Absent: tenderness, pedal edema, joint swelling, calf tenderness Back exam: Present: normal inspection Neurological exam: Present: alert, oriented X3, CN II-XII intact Psychiatric exam: Present: normal affect, normal mood Skin exam: Present: warm, dry, intact, normal color. Absent: rash Course Vital Signs 02/27/17 02/27/17 02/27/17 09:46 10:50 11:39 Temperature 97.1 F L Pulse Rate 26 L 55 L 70 Respiratory 57 H 20 18 Rate Blood Pressure 205/108 190/86 190/81 O2 Sat by Pulse 99 96 97 Oximetry - Reevaluation(s) Reevaluation #1: 02/27/17 13:53 The patient persists with severe right flank pain in spite of several different medications he still gets nauseated very easily with minimal amounts of narcotic IV pain medication. His pain initially was about 8 or 9/10 is down about 5/10 still very uncomfortable. Medical Decision Making - Medical Decision Making I did discuss the case with Dr. Pena who did review the reports and x-rays. The patient pain control is adequate he can be discharged. After IV fentanyl the patient did state he felt improved and was down to about 3/10 and he would like to go home. He does have an appointment to see Dr. Duke tomorrow morning at 8 AM. He also does have Anselmo was at home which he states he will take a period he will be discharged - Lab Data Result diagrams: 02/27/17 10:24 02/27/17 10:24 Lab Results 02/27/17 02/27/17 02/27/17 Range/Units 10:24 10:24 11:07 WBC 8.7 (3.8-10.6) k/uL RBC 6.06 H (4.30-5.90) m/uL Hgb 18.8 H (13.0-17.5) gm/dL Hct 52.6 (39.0-53.0) % MCV 86.8 (80.0-100.0) fL MCH 31.1 (25.0-35.0) pg MCHC 35.8 (31.0-37.0) g/dL RDW 13.8 (11.5-15.5) % Plt Count 374 (150-450) k/uL Neutrophils % 66 % Lymphocytes % 23 % Monocytes % 5 % Eosinophils % 4 % Basophils % 1 % Neutrophils # 5.7 (1.3-7.7) k/uL Lymphocytes # 2.0 (1.0-4.8) k/uL Monocytes # 0.4 (0-1.0) k/uL Eosinophils # 0.3 (0-0.7) k/uL Basophils # 0.1 (0-0.2) k/uL Hyperchromasia Slight Sodium 138 (137-145) mmol/L Potassium 4.3 (3.5-5.1) mmol/L Chloride 103 (98-107) mmol/L Carbon Dioxide 24 (22-30) mmol/L Anion Gap 11 mmol/L BUN 17 (9-20) mg/dL Creatinine 1.28 H (0.66-1.25) mg/dL Est GFR (MDRD) Af Amer >60 (>60 ml/min/1.73 sqM) Est GFR (MDRD) Non-Af >60 (>60 ml/min/1.73 sqM) Glucose 106 H (74-99) mg/dL Calcium 10.2 (8.4-10.2) mg/dL Magnesium 1.8 (1.6-2.3) mg/dL Total Bilirubin 1.0 (0.2-1.3) mg/dL AST 65 H (17-59) U/L ALT 95 H (21-72) U/L Alkaline Phosphatase 82 (38-126) U/L Total Protein 7.0 (6.3-8.2) g/dL Albumin 4.4 (3.5-5.0) g/dL Urine Color Yellow Urine Appearance Clear (Clear) Urine pH 6.5 (5.0-8.0) Ur Specific Cartwright 1.015 (1.001-1.035) Urine Protein Trace H (Negative) Urine Glucose (UA) Negative (Negative) Urine Ketones Negative (Negative) Urine Blood Moderate H (Negative) Urine Nitrite Negative (Negative) Urine Bilirubin Negative (Negative) Urine Urobilinogen <2.0 (<2.0) mg/dL Ur Leukocyte Esterase Negative (Negative) Urine RBC 117 H (0-5) /hpf Urine WBC 1 (0-5) /hpf Urine Mucus Rare H (None) /hpf - Radiology Data Radiology results: report reviewed, image reviewed Disposition Clinical Impression: Renal colic on left side Disposition: HOME SELF-CARE Condition: Good Instructions: Renal Colic (ED) Referrals: Sp Connors DO [Primary Care Provider] - 1-2 days
[2017-02-27 10:44] LABS: Basophils # (A) 0.1 k/uL (0-0.2); Basophils % (A) 1 %; Eosinophils # (A) 0.3 k/uL (0-0.7); Eosinophils % (A) 4 %; HCT 52.6 % (39.0-53.0); HGB 18.8 gm/dL (13.0-17.5); Hyperchromasia Slight; Lymphocytes % (A) 23 %; MCH 31.1 pg (25.0-35.0); MCHC 35.8 g/dL (31.0-37.0); MCV 86.8 fL (80.0-100.0); Mean Platelet Volume 7.3; Monocytes # (A) 0.4 k/uL (0-1.0); Monocytes % (A) 5 %; Neutrophils # (A) 5.7 k/uL (1.3-7.7); Neutrophils % (A) 66 %; Platelet Count 374 k/uL (150-450); RBC 6.06 m/uL (4.30-5.90); RDW 13.8 % (11.5-15.5); WBC 8.7 k/uL (3.8-10.6)
[2017-02-27 10:53] LABS: ALT 95 U/L (21-72); AST 65 U/L (17-59); Albumin 4.4 g/dL (3.5-5.0); Alkaline Phosphatase 82 U/L (38-126); Anion Gap 11 mmol/L; Blood Urea Nitrogen 17 mg/dL (9-20); Calcium 10.2 mg/dL (8.4-10.2); Carbon Dioxide 24 mmol/L (22-30); Chloride 103 mmol/L (98-107); Glucose 106 mg/dL (74-99); Magnesium 1.8 mg/dL (1.6-2.3); Potassium 4.3 mmol/L (3.5-5.1); Sodium 138 mmol/L (137-145)
[2017-02-27] MEDS ORDERED: KETAMINE 10 MG/ML 20 ML VIAL IV ONE (11:11)
--- NOTE | 2017-02-27 11:14 | XR ---
EXAMINATION TYPE: XR abdomen 1V DATE OF EXAM: 02/27/2017 COMPARISON: NONE HISTORY: Pain TECHNIQUE: Single supine KUB image of the abdomen is obtained FINDINGS: Small bowel demonstrates no evidence for dilatation or air fluid levels. Gas and fecal material is seen in non-distended colon. No convincing evidence for pneumoperitoneum. No unusual calcifications. The lung bases are clear. The osseous structures are intact. IMPRESSION: 1. Overall nonobstructive bowel gas pattern.
[2017-02-27 11:21] LABS: Appearance,Urine Clear (Clear); Bilirubin,Urine Negative (Negative); Blood,Urine Moderate (Negative); Color,Urine Yellow; Glucose,Urine (UA) Negative (Negative); Ketones,Urine Negative (Negative); Leukocyte Esterase,Urine Negative (Negative); Mucus,Urine Rare /hpf; Nitrite,Urine Negative (Negative); PH, Urine 6.5 (5.0-8.0); Protein,Urine Trace (Negative); RBC,Urine 117 /hpf (0-5); Specific Gravity,Urine 1.015 (1.001-1.035); Urobilinogen,Urine <2.0 mg/dL (<2.0); WBC,Urine 1 /hpf (0-5)
[2017-02-27 11:40] VITALS: RESP 18
[2017-02-27] MEDS ORDERED: ACETAMINOPHEN IV (For NPO) 1,000 MG in SALINE 1 100ML.BAG IVPB STA (12:09)
[2017-02-27] MEDS ORDERED: FAMOTIDINE 20 MG/2 ML VIAL IV STA (13:01)
[2017-02-27] MEDS ORDERED: HYDROmorphone 2 MG/ML 1 ML SYRINGE IVP STA (13:38)
[2017-02-27] MEDS ORDERED: fentaNYL (PF) 50 MCG/ML 2 ML AMP IV STA ×2 (14:33→16:08)
[2017-02-27 16:33] VITALS: BP 173/96; PULSE 54; TEMP 98.1
== END 2017-02-27 16:45 | disposition home or self-care (01) ==
LOC: EC 09:44
DX: N23 Unspecified renal colic (principal); F17.200 Nicotine dependence, unspecified, uncomplicated; Z79.899 Other long term (current) drug therapy; Z88.5 Allergy status to narcotic agent; Z53.20 Procedure and treatment not carried out because of patient's decision for unspecified reasons; Z87.442 Personal history of urinary calculi
CPT/HCPCS: 36415; 80053; 83735; 85025; 81001; 74018; 99284; 96374; 96375 ×6; 96376; 96361; J1170; J2405; J3010; J1885; J0131

== ENCOUNTER → 2018-08-21 | Outpatient (CLI) | payer BC ==
--- NOTE | 2018-08-21 09:52 | XR ---
EXAMINATION TYPE: XR lumbar spine 2 or 3V DATE OF EXAM: 08/21/2018 CLINICAL HISTORY: Low back pain. TECHNIQUE: Frontal and lateral images of the lumbar spine are obtained. COMPARISON: CT abdomen and pelvis February 22, 2017 FINDINGS: There are 5 lumbar type vertebral bodies redemonstrated. The lumbar spine shows satisfact ory alignment without evidence of acute fracture or dislocation. Vertebral body heights remain within normal limits. There is persistent moderate disc space narrowing and mild to moderate spurring with endplate sclerosis L4-L5 level. There is persistent mild disc space narrowing L3-L4 level. Left-side d laminectomy defects lower lumbar spine are seen on frontal view. The overlying soft tissue appears unremarkable. IMPRESSION: As above.
--- NOTE | 2018-08-23 13:35 | MR ---
MRI CERVICAL SPINE: CLINICAL HISTORY: History of cervical fusion with neck pain. TECHNIQUE: Multiplanar, multisequence imaging of the cervical spine is performed without and with IV contrast, 13 cc of gadolinium was given intravenously. COMPARISON: CT neck May 31, 2016. FINDINGS: Sagittal images of the cervical spine show the craniocervical junction to remain within nor mal limits. The cervical and upper thoracic spinal cord is normal in course, caliber, and signal. V ertebral alignment is stable and straightened. Artifact from anterior fusion plate C3-C5 levels is pr esent. Artifact from vertebral ossific fusion noted at this level. There is persistent moderate to se mahesh disc space narrowing C5-C6 level. Some effacement of anterior thecal sac near C5 level is redemo nstrated due to posterior bony projections. Bone marrow signal intensity is preserved. No suspicious enhancement is seen. Axial images at C2-C3 level remain within normal limits. Axial images at C3-C4 level show patent bilateral neural foramina, artifact from anterior fusion surg stephen noted. Axial images at C4-C5 level show moderate bilateral neural foraminal narrowing on axial image 33 comm ent anterior artifact from surgical change noted. Axial images at the C5 vertebra also effacement of anterior thecal sac due to posterior bony projecti ons, there is mild bilateral neural foraminal narrowing C5-C6 level on axial image 27. Axial images at C6-C7 level show moderate left-sided neural foraminal narrowing due to left foraminal disc protrusion and right paracentral disc protrusion effacing anterolateral thecal sac confirm sagi ttal image 8. Axial images at the C7-T1 level remain within normal limits. IMPRESSION: Postsurgical change C3 through inferior C5 level redemonstrated with stable alignment. De generative change noted C6-C7 level as detailed above. Posterior effacement at C5 vertebral level fro m posterior bony projection is noted. Bilateral neural foraminal narrowing noted C4-C5 level.
== END | disposition home or self-care (01) ==
LOC: RADMRIMAIN 09:24
PROVIDERS: ATTEND Psychiatry & Neurology Neurology
DX: M48.02 Spinal stenosis, cervical region (principal); M48.061 Spinal stenosis, lumbar region without neurogenic claudication; M50.223 Other cervical disc displacement at C6-C7 level; M51.36 Other intervertebral disc degeneration, lumbar region; M47.812 Spondylosis without myelopathy or radiculopathy, cervical region; M96.1 Postlaminectomy syndrome, not elsewhere classified
CPT/HCPCS: 72100; 72156; A9585

== ENCOUNTER → 2018-09-14 | Outpatient (CLI) | payer BC ==
--- NOTE | 2018-09-14 11:11 | P.STRESS ---
- Stress Test Note Stress Test Results/Findings: Exam Performed: stress echo exercise Exam Date: 09/14/18 Reason for Exam: CHEST PAIN Height: 6 ft 2 in Weight: 124.738 kg Protocol: CHANDAN Stage: 4 Duration of Exercise: 9:30 Resting Heart Rate: 50 Resting Blood Pressure: 126/61 Maximum Achieved Heart Rate: 154 Maximum Achieved Blood Pressure: 209/94 85% PMHR: 145 100% PMHR: 171 METS: 11.1 Technologist Comment: Stress Test Results/Findings: Baseline heart rate 50 beats a minute, Baseline blood pressure 126/61 mmHg o ECG shows sinus rhythm with a NV interval of 120 ms Patient exercised a Chandan protocol for Minutes achieving a peak heart rate of 154 beats a minute. Peak blood pressure 209/94 mmHg Baseline 2-D echo showed normal LV systolic function no segment wall motion multis At peak exercise there was excellent rub additional oral LV contractility without developing any wall motion royalties At recovery due to global LV systolic function remained normal Impression mildly hypertensive response to exercise No ECG or echocardiographic evidence for ischemia
--- NOTE | 2018-09-14 12:53 | ECHOS ---
Stress Test Results/Findings: Exam Performed: stress echo exercise Exam Date: 09/14/18 Reason for Exam: CHEST PAIN Height: 6 ft 2 in Weight: 124.738 kg Protocol: CHANDAN Stage: 4 Duration of Exercise: 9:30 Resting Heart Rate: 50 Resting Blood Pressure: 126/61 Maximum Achieved Heart Rate: 154 Maximum Achieved Blood Pressure: 209/94 85% PMHR: 145 100% PMHR: 171 METS: 11.1 Technologist Comment: Stress Test Results/Findings: Baseline heart rate 50 beats a minute, Baseline blood pressure 126/61 mmHg o ECG shows sinus rhythm with a NC interval of 120 ms Patient exercised a Chandan protocol for Minutes achieving a peak heart rate of 154 beats a minute. Peak blood pressure 209/94 mmHg Baseline 2-D echo showed normal LV systolic function no segment wall motion multis At peak exercise there was excellent rub additional oral LV contractility without developing any wall motion royalties At recovery due to global LV systolic function remained normal Impression mildly hypertensive response to exercise No ECG or echocardiographic evidence for ischemia MTDD
== END | disposition home or self-care (01) ==
LOC: RADNMMAIN 09:40
PROVIDERS: ATTEND Family Medicine
DX: I10 Essential (primary) hypertension (principal)
CPT/HCPCS: 93351

== ENCOUNTER 2018-11-29 17:10 | Emergency (ER) | payer BC ==
[2018-11-29 17:15] VITALS: TEMP 97.4
[2018-11-29] MEDS ORDERED: NITROGLYCERIN SL TABS 0.4 MG TAB SUBLINGUAL STA (17:32)
[2018-11-29] MEDS ORDERED: SODIUM CHLORIDE 0.9% 1,000 ML IV STA (17:32)
[2018-11-29] MEDS ORDERED: ASPIRIN 81 MG PO STA (17:32)
--- NOTE | 2018-11-29 17:37 | ED ---
Chest Pain HPI - General Chief Complaint: Chest Pain Stated Complaint: chest tightness Time Seen by Provider: 11/29/18 17:16 Source: patient, RN notes reviewed Mode of arrival: ambulatory Limitations: no limitations - History of Present Illness Initial Comments: Is a 48-year-old male with a benign past history who is a smoker who states he had the onset intermittently since August of this year of left-sided chest pain with some radiate down his left arm he states he started getting it today felt like pressure and sharpness that was 4/10 in severity he points to his mid left chest going down his left arm. No other associated symptoms other presents with some shortness of breath with it. No fevers chills nausea vomiting sweats. Certain movement does can make it occur not moving makes it better. He states is different than the pain he gets from chronic pain in his neck. He's been off from work recently. No heavy lifting report no falls reported. He does have intermittent episodes of burning to his feet. He has no prior diagnoses of peripheral vascular disease. No known family history of any early cardiac or pulmonary disease however it was later learned there is a history of aortic disease in the family. MD Complaint: chest pain - Related Data Home Medications Medication Instructions Recorded Confirmed Eszopiclone [Lunesta] 3 mg PO HS 06/07/16 11/29/18 Aspirin EC [Ecotrin Low Dose] 162 mg PO ONCE PRN 11/29/18 11/29/18 Irbesartan [Avapro] 75 mg PO DAILY 11/29/18 11/29/18 Previous Rx's Medication Instructions Recorded Ibuprofen 800 mg PO Q6HR PRN #20 tablet 11/29/18 Allergies Allergy/AdvReac Type Severity Reaction Status Date / Time morphine Allergy Rash/Hives Verified 11/29/18 18:19 Review of Systems ROS Statement: Those systems with pertinent positive or pertinent negative responses have been documented in the HPI. ROS Other: All systems not noted in ROS Statement are negative. EKG Findings - EKG Results: EKG: interpreted by IFTIKHAR, sinus rhythm, normal axis, normal QRS, normal ST/T, no acute changes EKG shows: bradycardia (Sinus rhythm of 57. Interval 150 to QRS 112 QT since QTC 444/432) Past Medical History Past Medical History: No Reported History Additional Past Medical History / Comment(s): kidney stone History of Any Multi-Drug Resistant Organisms: None Reported Past Surgical History: Back Surgery, Orthopedic Surgery Additional Past Surgical History / Comment(s): Neck and ankle surgery with plates. Past Anesthesia/Blood Transfusion Reactions: No Reported Reaction Past Psychological History: No Psychological Hx Reported Smoking Status: Current every day smoker Past Alcohol Use History: None Reported Past Drug Use History: None Reported - Past Family History Mother Family Medical History: No Reported History Father Family Medical History: Cancer Additional Family Medical History / Comment(s): Prostate cancer General Exam - General Exam Comments Initial Comments: This is a well-developed well-nourished awake alert oriented 3 male Limitations: no limitations General appearance: alert, in no apparent distress Head exam: Present: atraumatic, normocephalic, normal inspection Eye exam: Present: normal appearance, PERRL, EOMI. Absent: scleral icterus, conjunctival injection, periorbital swelling ENT exam: Present: normal exam, mucous membranes moist Neck exam: Present: normal inspection, tenderness, full ROM, other (Tenderness over left lateral neck musculature and trapezius muscles with the patient states his typical of his previous neck pathology. No stridor JVD or bruits). Absent: meningismus, lymphadenopathy Respiratory exam: Present: normal lung sounds bilaterally, chest wall tenderness. Absent: respiratory distress, wheezes, rales, rhonchi, stridor Cardiovascular Exam: Present: normal rhythm, bradycardia, normal heart sounds. Absent: systolic murmur, diastolic murmur, rubs, gallop, clicks GI/Abdominal exam: Present: soft, normal bowel sounds. Absent: distended, tenderness, guarding, rebound, rigid, bruit, pulsatile mass Extremities exam: Present: normal inspection, full ROM, normal capillary refill. Absent: tenderness, pedal edema, joint swelling, calf tenderness Back exam: Present: normal inspection Neurological exam: Present: alert, oriented X3, CN II-XII intact Psychiatric exam: Present: normal affect, normal mood Skin exam: Present: warm, dry, intact, normal color. Absent: rash Course Vital Signs 11/29/18 17:12 Temperature 97.4 F L Pulse Rate 55 L Respiratory 16 Rate Blood Pressure 143/91 O2 Sat by Pulse 98 Oximetry Procedures - Smoking Cessation Time Spent Discussing Smoking Cessation w/Patient (Minutes): 3 Patient Acknowledges Need for Cessation: Yes Chest Pain MDM - MDM I did review the imaging and report no definite acute changes are is evidence of a left lower lobe nodule. Patient will be discharged he does note that he had a stress test was apparently within normal limits with the last month and a half. He is instructed to continue with efforts assess smoking follow back up with Dr. Connors return when necessary we placed on anti-inflammatories. Disposition Clinical Impression: Costochondritis, Chest wall syndrome, Smoking Disposition: HOME SELF-CARE Condition: Good Instructions (If sedation given, give patient instructions): Costochondritis (ED), How to Stop Smoking (ED) Prescriptions: Ibuprofen 800 mg PO Q6HR PRN #20 tablet PRN Reason: Pain Is patient prescribed a controlled substance at d/c from ED?: No Referrals: Sp Connors DO [Primary Care Provider] - 1-2 days
[2018-11-29 17:40] LABS: Basophils # (A) 0.1 k/uL (0-0.2); Basophils % (A) 1 %; Eosinophils # (A) 0.3 k/uL (0-0.7); Eosinophils % (A) 3 %; HCT 52.7 % (39.0-53.0); HGB 18.9 gm/dL (13.0-17.5); Lymphocytes # (A) 2.2 k/uL (1.0-4.8); Lymphocytes % (A) 24 %; MCH 31.8 pg (25.0-35.0); MCV 88.5 fL (80.0-100.0); Mean Platelet Volume 6.2; Monocytes # (A) 0.2 k/uL (0-1.0); Monocytes % (A) 3 %; Neutrophils # (A) 6.2 k/uL (1.3-7.7); Neutrophils % (A) 68 %; Platelet Count 349 k/uL (150-450); RBC 5.95 m/uL (4.30-5.90); RDW 13.7 % (11.5-15.5); WBC 9.1 k/uL (3.8-10.6)
--- NOTE | 2018-11-29 17:54 | XR ---
EXAMINATION TYPE: XR chest 2V DATE OF EXAM: 11/29/2018 COMPARISON: August 12, 2018 HISTORY: Chest pressure. Short of breath TECHNIQUE: Frontal and lateral views of the chest are obtained. FINDINGS: Heart and mediastinum are normal. There is 8 mm area of increased density over the lateral left lower lobe.. Diaphragm is normal. Bony thorax is intact. There are chest leads. IMPRESSION: Possible small left pulmonary nodule is a change compared to old exam. Normal heart. No heart failure.
[2018-11-29 17:55] LABS: ALT 48 U/L (21-72); AST 55 U/L (17-59); African American GFR (CKD) >90 (>60 ml/min/1.73 sqM); Albumin 4.3 g/dL (3.5-5.0); Alkaline Phosphatase 96 U/L (38-126); Anion Gap 10 mmol/L; Blood Urea Nitrogen 16 mg/dL (9-20); Calcium 10.2 mg/dL (8.4-10.2); Carbon Dioxide 19 mmol/L (22-30); Chloride 110 mmol/L (98-107); Creatine Kinase 392 U/L (55-170); Glucose 122 mg/dL (74-99); Magnesium 1.9 mg/dL (1.6-2.3); Potassium 4.2 mmol/L (3.5-5.1); Sodium 139 mmol/L (137-145); Total Protein 7.1 g/dL (6.3-8.2)
[2018-11-29 17:57] LABS: D-Dimer 0.22 mg/L FEU (<0.60); INR 1.1 (<1.2); Partial Thromboplastin Time 28.5 sec (22.0-30.0); Prothrombin Time 11.4 sec (9.0-12.0)
[2018-11-29] MEDS ORDERED: KETOROLAC 30 MG/ML 1 ML VIAL IVP STA (18:11)
[2018-11-29 19:14] VITALS: BP 114/87; PULSE 57; RESP 18
== END 2018-11-29 19:12 | disposition home or self-care (01) ==
LOC: EC 17:10
DX: M94.0 Chondrocostal junction syndrome [Tietze] (principal); F17.200 Nicotine dependence, unspecified, uncomplicated; Z71.6 Tobacco abuse counseling; Z88.5 Allergy status to narcotic agent
CPT/HCPCS: 36415; 93005; 85379; 80053; 82550; 83690; 83735; 84484; 85025; 85610; 85730; 71046; 99285; 96374; 96361 ×2; J1885

== ENCOUNTER → 2019-01-01 | Outpatient (CLI) | payer BC ==
--- NOTE | 2019-01-01 12:52 | CT ---
EXAMINATION TYPE: CT chest w con DATE OF EXAM: 01/01/2019 COMPARISON: Chest x-ray dated 11/29/2018 HISTORY: Pulmonary nodule CT DLP: 579.50 mGycm. Automated Exposure Control for Dose Reduction was Utilized. TECHNIQUE: CT scan of the thorax is performed following with IV Contrast, patient injected with 100 ml mL of Isovue 300. FINDINGS: LUNGS: The lungs are grossly clear, there is no concerning parenchymal mass or nodule identified. T here is no pleural effusion or pneumothorax seen. The tracheobronchial tree is patent. MEDIASTINUM: There are no greater than 1 cm hilar or mediastinal lymph nodes. No pericardial effusi on is seen. Mild coronary artery calcifications. OTHER: No additional significant abnormality is seen. Small splenule seen adjacent to the [place] spl een. The spleen is enlarged measuring 18.4 cm in longitudinal dimension. IMPRESSION: 1. Incidentally noted splenomegaly with the spleen measuring 18.4 cm (upper limits of normal 14.0 cm) . 2. Question pulmonary nodule on the prior x-ray of 11/29/[address] and was related to a psuedonodule on x-ray.
== END ==
LOC: RADCTMAIN 08:32
PROVIDERS: ATTEND Family Medicine
DX: R91.1 Solitary pulmonary nodule (principal)
CPT/HCPCS: 71260; Q9967

== ENCOUNTER 2019-04-24 06:44 | Emergency (ER) | payer BC ==
[2019-04-24 06:53] VITALS: TEMP 97.3
[2019-04-24] MEDS ORDERED: ONDANSETRON 4 MG/2 ML VIAL IVP STA (07:04)
[2019-04-24] MEDS ORDERED: HYDROmorphone 1 MG/ML 1 ML SYRINGE IVP STA ×3 (07:04→08:51)
[2019-04-24] MEDS ORDERED: KETOROLAC 30 MG/ML 1 ML VIAL IVP STA (07:04)
[2019-04-24] MEDS ORDERED: PANTOPRAZOLE 40 MG/10 ML VIAL IVP STA (07:04)
[2019-04-24] MEDS ORDERED: SODIUM CHLORIDE 0.9% 1,000 ML IV STA ×2 (07:04)
--- NOTE | 2019-04-24 07:12 | ED ---
Abdominal Pain HPI - General Chief Complaint: Abdominal Pain Stated Complaint: Poss kidney stone Time Seen by Provider: 04/24/19 06:56 Source: patient, RN notes reviewed, old records reviewed Mode of arrival: ambulatory Limitations: no limitations - History of Present Illness Initial Comments: Timothy is a 48-year-old male who presents emergency department today for evaluation for onset of right-sided flank and lower abdominal pain starting 3:30 this morning. Patient reports he's had a history of kidney stones and feels that this is similar to his previous kidney stones. He said have some removed with lithotripsy and stenting. Patient reports that he's had no recent fevers or chills. He reports he has been vomiting this morning. - Related Data Home Medications Medication Instructions Recorded Confirmed Eszopiclone [Lunesta] 3 mg PO HS 06/07/16 11/29/18 Aspirin EC [Ecotrin Low Dose] 162 mg PO ONCE PRN 11/29/18 11/29/18 Irbesartan [Avapro] 75 mg PO DAILY 11/29/18 11/29/18 Previous Rx's Medication Instructions Recorded Ibuprofen 800 mg PO Q6HR PRN #20 tablet 11/29/18 HYDROcodone/APAP 5-325MG [[place] 1 tab PO Q4HR PRN 3 Days #18 tab 04/24/19 5-325] Ketorolac [Toradol] 10 mg PO Q6HR #20 tab 04/24/19 Ondansetron HCl [Zofran] 4 mg PO Q8H PRN #20 tab 04/24/19 Tamsulosin [Flomax] 0.4 mg PO DAILY #7 cap 04/24/19 Allergies Allergy/AdvReac Type Severity Reaction Status Date / Time morphine Allergy Rash/Hives Verified 04/24/19 06:53 Review of Systems ROS Statement: Those systems with pertinent positive or pertinent negative responses have been documented in the HPI. ROS Other: All systems not noted in ROS Statement are negative. Past Medical History Past Medical History: No Reported History Additional Past Medical History / Comment(s): kidney stone History of Any Multi-Drug Resistant Organisms: None Reported Past Surgical History: Back Surgery, Orthopedic Surgery Additional Past Surgical History / Comment(s): Neck and ankle surgery with plates. Past Anesthesia/Blood Transfusion Reactions: No Reported Reaction Past Psychological History: No Psychological Hx Reported Smoking Status: Former smoker Past Alcohol Use History: None Reported Past Drug Use History: None Reported - Past Family History Mother Family Medical History: No Reported History Father Family Medical History: Cancer Additional Family Medical History / Comment(s): Prostate cancer General Exam - General Exam Comments Initial Comments: 48-year-old male. Alert and oriented 3. Limitations: no limitations General appearance: alert, in no apparent distress Head exam: Present: atraumatic, normocephalic, normal inspection Eye exam: Present: normal appearance, PERRL, EOMI. Absent: scleral icterus, conjunctival injection, periorbital swelling ENT exam: Present: normal exam, mucous membranes moist Neck exam: Present: normal inspection. Absent: tenderness, meningismus, lym phadenopathy Respiratory exam: Present: normal lung sounds bilaterally. Absent: respiratory distress, wheezes, rales, rhonchi, stridor Cardiovascular Exam: Present: regular rate, normal rhythm, normal heart sounds. Absent: systolic murmur, diastolic murmur, rubs, gallop, clicks GI/Abdominal exam: Present: soft, tenderness (RLQ pain), normal bowel sounds. Absent: distended, guarding, rebound, rigid Extremities exam: Present: normal inspection, full ROM, normal capillary refill. Absent: tenderness, pedal edema, joint swelling, calf tenderness Back exam: Present: normal inspection Neurological exam: Present: alert, oriented X3, CN II-XII intact Psychiatric exam: Present: normal affect, normal mood Skin exam: Present: warm, dry, intact, normal color. Absent: rash Course Vital Signs 04/24/19 04/24/19 06:51 08:02 Temperature 97.3 F L Pulse Rate 43 L 47 L Respiratory 20 14 Rate Blood Pressure 203/97 166/104 O2 Sat by Pulse 99 95 Oximetry Medical Decision Making - Medical Decision Making 48-year-old male presents emergency department today for evaluation with concern for right-sided flank pain. Patient has history of kidney stones. Urinalysis is positive for hematuria. At this time Patient has normal kidney function, normal white blood cell count. Patient's computed tomography scan shows a 4 mm proximal ureteral stone. Patient was informed that this should pass on its own. Discussed he needs follow-up with urology. We'll discharge the Patient with a course of pain medication, Flomax and Zofran. Discussed return parameters. - Lab Data Result diagrams: 04/24/19 07:05 04/24/19 07:05 Lab Results 04/24/19 04/24/19 04/24/19 Range/Units 07:05 07:05 07:05 WBC 8.9 (3.8-10.6) k/uL RBC 5.89 (4.30-5.90) m/uL Hgb 18.2 H (13.0-17.5) gm/dL Hct 51.1 (39.0-53.0) % MCV 86.8 (80.0-100.0) fL MCH 31.0 (25.0-35.0) pg MCHC 35.7 (31.0-37.0) g/dL RDW 14.0 (11.5-15.5) % Plt Count 407 (150-450) k/uL Neutrophils % 82 % Lymphocytes % 12 % Monocytes % 3 % Eosinophils % 1 % Basophils % 1 % Neutrophils # 7.3 (1.3-7.7) k/uL Lymphocytes # 1.0 (1.0-4.8) k/uL Monocytes # 0.3 (0-1.0) k/uL Eosinophils # 0.1 (0-0.7) k/uL Basophils # 0.0 (0-0.2) k/uL Hyperchromasia Slight PT 11.3 (9.0-12.0) sec INR 1.1 (<1.2) APTT 24.3 (22.0-30.0) sec Sodium (137-145) mmol/L Potassium (3.5-5.1) mmol/L Chloride (98-107) mmol/L Carbon Dioxide (22-30) mmol/L Anion Gap mmol/L BUN (9-20) mg/dL Creatinine (0.66-1.25) mg/dL Est GFR (CKD-EPI)AfAm (>60 ml/min/1.73 sqM) Est GFR (CKD-EPI)NonAf (>60 ml/min/1.73 sqM) Glucose (74-99) mg/dL Calcium (8.4-10.2) mg/dL Total Bilirubin (0.2-1.3) mg/dL AST (17-59) U/L ALT (4-49) U/L Alkaline Phosphatase (38-126) U/L Total Protein (6.3-8.2) g/dL Albumin (3.5-5.0) g/dL Amylase (30-110) U/L Lipase (23-300) U/L Urine Color Yellow Urine Appearance Clear (Clear) Urine pH 6.0 (5.0-8.0) Ur Specific [place] 1.023 (1.001-1.035) Urine Protein 1+ H (Negative) Urine Glucose (UA) Negative (Negative) Urine Ketones Trace H (Negative) Urine Blood Large H (Negative) Urine Nitrite Negative (Negative) Urine Bilirubin Negative (Negative) Urine Urobilinogen <2.0 (<2.0) mg/dL Ur Leukocyte Esterase Negative (Negative) Urine RBC 79 H (0-5) /hpf Urine WBC 2 (0-5) /hpf Ur Squamous Epith Cells <1 (0-4) /hpf Hyaline Casts 1 (0-2) /lpf Urine Mucus Occasional H (None) /hpf 04/24/19 Range/Units 07:05 WBC (3.8-10.6) k/uL RBC (4.30-5.90) m/uL Hgb (13.0-17.5) gm/dL Hct (39.0-53.0) % MCV (80.0-100.0) fL MCH (25.0-35.0) pg MCHC (31.0-37.0) g/dL RDW (11.5-15.5) % Plt Count (150-450) k/uL Neutrophils % % Lymphocytes % % Monocytes % % Eosinophils % % Basophils % % Neutrophils # (1.3-7.7) k/uL Lymphocytes # (1.0-4.8) k/uL Monocytes # (0-1.0) k/uL Eosinophils # (0-0.7) k/uL Basophils # (0-0.2) k/uL Hyperchromasia PT (9.0-12.0) sec INR (<1.2) APTT (22.0-30.0) sec Sodium 138 (137-145) mmol/L Potassium 4.3 (3.5-5.1) mmol/L Chloride 104 (98-107) mmol/L Carbon Dioxide 24 (22-30) mmol/L Anion Gap 10 mmol/L BUN 16 (9-20) mg/dL Creatinine 1.47 H (0.66-1.25) mg/dL Est GFR (CKD-EPI)AfAm 64 (>60 ml/min/1.73 sqM) Est GFR (CKD-EPI)NonAf 55 (>60 ml/min/1.73 sqM) Glucose 146 H (74-99) mg/dL Calcium 10.1 (8.4-10.2) mg/dL Total Bilirubin 1.4 H (0.2-1.3) mg/dL AST 59 (17-59) U/L ALT 56 H (4-49) U/L Alkaline Phosphatase 113 (38-126) U/L Total Protein 7.7 (6.3-8.2) g/dL Albumin 4.7 (3.5-5.0) g/dL Amylase 48 (30-110) U/L Lipase 86 (23-300) U/L Urine Color Urine Appearance (Clear) Urine pH (5.0-8.0) Ur Specific [place] (1.001-1.035) Urine Protein (Negative) Urine Glucose (UA) (Negative) Urine Ketones (Negative) Urine Blood (Negative) Urine Nitrite (Negative) Urine Bilirubin (Negative) Urine Urobilinogen (<2.0) mg/dL Ur Leukocyte Esterase (Negative) Urine RBC (0-5) /hpf Urine WBC (0-5) /hpf Ur Squamous Epith Cells (0-4) /hpf Hyaline Casts (0-2) /lpf Urine Mucus (None) /hpf - Radiology Data Radiology results: report reviewed Obstructing 4 mm right proximal ureteral calculus with resultant mild right- sided hydronephrosis, perinephric fat stranding and ureteral fat stranding. Incidentally noticed no megaly. Nonobstructing punctate left renal tract was. Hepatic steatosis. Disposition Clinical Impression: Right flank pain, Ureteral stone Disposition: HOME SELF-CARE Condition: Good Instructions (If sedation given, give patient instructions): Ureteral Stones (ED) Additional Instructions: Please use medication as discussed. Please follow up with family doctor if symptoms have not improved over the next two days. Please return to the emergency room if your symptoms increase or worsen or for any other concerns. Prescriptions: Tamsulosin [Flomax] 0.4 mg PO DAILY #7 cap HYDROcodone/APAP 5-325MG [[place] 5-325] 1 tab PO Q4HR PRN 3 Days #18 tab PRN Reason: Pain Ketorolac [Toradol] 10 mg PO Q6HR #20 tab Ondansetron HCl [Zofran] 4 mg PO Q8H PRN #20 tab PRN Reason: Nausea And Vomiting Is patient prescribed a controlled substance at d/c from ED?: Yes If prescribed controlled substance>3 days was MAPS reviewed?: Prescribed <3 Days If opioid is for acute pain is fill amount 7 days or less?: Yes If Rx opioid, was Start Talking consent form obtained?: Yes Referrals: Sp Connors DO [Primary Care Provider] - 1-2 days Keyur Denny MD [STAFF PHYSICIAN] - 1-2 days Time of Disposition: 08:34
[2019-04-24 07:23] LABS: Appearance,Urine Clear (Clear); Basophils % (A) 1 %; Bilirubin,Urine Negative (Negative); Blood,Urine Large (Negative); Color,Urine Yellow; Eosinophils # (A) 0.1 k/uL (0-0.7); Eosinophils % (A) 1 %; Glucose,Urine (UA) Negative (Negative); HCT 51.1 % (39.0-53.0); HGB 18.2 gm/dL (13.0-17.5); Hyaline Casts,Urine 1 /lpf (0-2); Hyperchromasia Slight; Ketones,Urine Trace (Negative); Leukocyte Esterase,Urine Negative (Negative); Lymphocytes % (A) 12 %; MCHC 35.7 g/dL (31.0-37.0); MCV 86.8 fL (80.0-100.0); Mean Platelet Volume 7.5; Monocytes # (A) 0.3 k/uL (0-1.0); Monocytes % (A) 3 %; Mucus,Urine Occasional /hpf; Neutrophils # (A) 7.3 k/uL (1.3-7.7); Neutrophils % (A) 82 %; Nitrite,Urine Negative (Negative); Platelet Count 407 k/uL (150-450); Protein,Urine 1+ (Negative); RBC 5.89 m/uL (4.30-5.90); RBC,Urine 79 /hpf (0-5); Specific Gravity,Urine 1.023 (1.001-1.035); Squamous Epithelial Cell,Urine <1 /hpf (0-4); Urobilinogen,Urine <2.0 mg/dL (<2.0); WBC 8.9 k/uL (3.8-10.6); WBC,Urine 2 /hpf (0-5)
[2019-04-24 07:30] LABS: INR 1.1 (<1.2); Partial Thromboplastin Time 24.3 sec (22.0-30.0); Prothrombin Time 11.3 sec (9.0-12.0)
[2019-04-24 07:41] LABS: Albumin 4.7 g/dL (3.5-5.0); Calcium 10.1 mg/dL (8.4-10.2); Potassium 4.3 mmol/L (3.5-5.1); Total Bilirubin 1.4 mg/dL (0.2-1.3); Total Protein 7.7 g/dL (6.3-8.2)
--- NOTE | 2019-04-24 07:56 | XR ---
EXAMINATION TYPE: XR KUB DATE OF EXAM: 04/24/2019 7:44 AM CLINICAL HISTORY: Abdominal pain and known nephrolithiasis. TECHNIQUE: Single upright image of the abdomen is obtained. COMPARISON: 02/14/2017. FINDINGS: Is a questionable 3 mm calculus in the level L2-L3 overlying the right renal shadow. Scatte red gas is seen in non-distended small bowel loops. Gas and fecal material is seen in non-distended c olon. No pneumoperitoneum. The lung bases are clear and the osseous structures are intact. Radiopaque density overlying the left pubic bone likely represents an external finding. The previously seen 7 m m left renal calculus is no longer visualized. IMPRESSION: Questionable 3 mm right calculus at L2-L3, possibly within the ureter. Previously seen le ft renal calculus is normal in visualized.
--- NOTE | 2019-04-24 08:01 | CT ---
EXAMINATION TYPE: CT abdomen pelvis wo con DATE OF EXAM: 04/24/2019 COMPARISON: X-ray of the same date HISTORY: right flank pain, nausea, vomiting CT DLP: 1666 mGycm Automated exposure control for dose reduction was used. TECHNIQUE: Helical acquisition of images was performed from the lung bases through the pelvis. FINDINGS: Lack of intravenous and oral contrast limit evaluation of both the hollow and solid viscera . LUNG BASES: Left basilar subsegmental dependent atelectasis is seen, limiting evaluation for subcenti meter pulmonary nodule. Coronary calcifications are partially visualized. Heart is enlarged. LIVER/GB: Hepatic parenchyma is diffusely hypoattenuated in comparison to that of the spleen, most co mmonly seen in hepatic steatosis. This finding limits evaluation for hepatic masses. No gross evidenc e of hepatic mass is seen. No intrahepatic biliary ductal dilatation. PANCREAS: Pancreatic parenchymal atrophy without ductal dilatation. SPLEEN: Splenomegaly with the spleen measuring 17.3 cm in craniocaudal dimension. Small splenule k[place] cent to the [place] spleen. ADRENALS: No significant abnormality is seen. KIDNEYS: There is a punctate 2 mm nonobstructing left lower pole renal calculus. On the right there i s perinephric and periureteral fat stranding secondary to an obstructing 4 mm proximal ureteral calcu zoë. There is resultant mild right-sided hydronephrosis. Urinary bladder is nondistended. No calculi seen in the urinary bladder. FREE AIR: No free air is visualized REPRODUCTIVE ORGANS: Prostate gland is heterogenous containing central zone calcifications. URINARY BLADDER: No significant abnormality is seen. ADENOPATHY: No greater than 1 cm short axis lymph node in the abdomen or pelvis. OSSEOUS STRUCTURES: There are nonspecific punctate sclerotic foci of the pelvis, present on the exam of 2018 and therefore likely bone islands. Mild multilevel degenerative change of the spine. BOWEL: Evaluation of bowel is limited without contrast however no dilated large or small bowel is se en. Appendix is air-filled and within normal limits of size. IMPRESSION: 1. Obstructing 4 mm right proximal ureteral calculus with resultant mild right-sided hydronephrosis, perinephric fat stranding and periureteral fat stranding. 2. Incidentally noted splenomegaly. 3. Nonobstructing punctate left renal calculus. 4. Hepatic steatosis.
[2019-04-24 08:02] VITALS: BP 166/104; PULSE 47; RESP 14
[2019-04-24] MEDS ORDERED: TAMSULOSIN 0.4 MG CAP.ER.24H PO STA (08:20)
== END 2019-04-24 09:30 | disposition home or self-care (01) ==
LOC: EC 06:44
DX: N13.2 Hydronephrosis with renal and ureteral calculous obstruction (principal); Z79.899 Other long term (current) drug therapy; Z88.5 Allergy status to narcotic agent; Z87.891 Personal history of nicotine dependence
CPT/HCPCS: 36415; 80053; 82150; 83690; 85025; 85610; 85730; 81001; 74018; 74176; 99285; 96374; 96375 ×3; 96376 ×2; 96361 ×2; J2405; J1885; J1170; C9113

== ENCOUNTER → 2021-08-15 | Outpatient (CLI) | payer MEDICARE, OTHER ==
--- NOTE | 2021-08-15 16:22 | MR ---
EXAMINATION TYPE: MR cervical spine wo con DATE OF EXAM: 08/15/2021 COMPARISON: HISTORY: Neck pain into left arm and fingers, hx of surgery TECHNIQUE: Multiplanar, multisequence images of the cervical spine were acquired without contrast. C2-C3: No evidence for degenerative disc disease. No disc bulge/herniation or protrusion. No Canal stenosis. Foramina are patent bilaterally. C3-C4: No evidence for degenerative disc disease. No disc bulge/herniation or protrusion. No Canal stenosis. Foramina are patent bilaterally. C4-C5: Bilateral uncovertebral joint hypertrophy changes are again noted causing bilateral foraminal encroachment, some mild spinal stenosis present due to posterior aspect of the bony fusion. C5-C6: Posterior extension of bone causes anterior mass effect on the thecal sac, mild spinal stenosi s similar to prior exam. Mild right-sided foraminal encroachment greater than left due to uncovertebr al joint hypertrophy. C6-C7: There is some left-sided foraminal encroachment greater than right due to uncovertebral joint hypertrophy. Posterior aspect of the bony fusion causes some anterior mass effect on the thecal sac, mild spinal stenosis. C7-T1: No evidence for degenerative disc disease. No disc bulge/herniation or protrusion. No Canal stenosis. Foramina are patent bilaterally. Cervical segments are stable. There is stable alignment. Cervical spinal cord is showing a small fo cus of hyperintensity, axial image 15 posteriorly on the right, T2-weighted sequences, difficult to e xclude some gliosis. Craniovertebral junction relationships are within normal limits. Anterior cerv ical fusion changes with discectomy again seen at C3-C5, susceptibility artifact noted. There is no e vident disc herniation. IMPRESSION: Postop changes are similar to prior exam. Multilevel foraminal encroachment. Difficult to exclude thor e cord signal change, stable.
== END | disposition home or self-care (01) ==
LOC: RADMRIMAIN 06:24
PROVIDERS: ATTEND Orthopaedic Surgery
DX: Z47.89 Encounter for other orthopedic aftercare (principal); M77.12 Lateral epicondylitis, left elbow; M19.012 Primary osteoarthritis, left shoulder; M75.22 Bicipital tendinitis, left shoulder
CPT/HCPCS: 72141

== ENCOUNTER 2022-01-24 15:46 | Day surgery (SDC) | payer MEDICARE ==
--- NOTE | 2022-01-24 09:57 | P.GSHP ---
History of Present Illness H&P Date: 01/24/22 51 yo male with a history of stones, For one month he has had left flank pain. Last week it became severe. He went to the er and he has a 5 mm left proximal ureteral stone. It is still causing pain We discusse treatment options. He want something done. He last ateyesterday. He comes for left ureterscopy with laser lithotripsy - Constitutional Constitutional: Denies chills, Denies fever - EENT Eyes: denies blurred vision, denies pain Ears, nose, mouth and throat: Denies headache, Denies sore throat - Cardiovascular Cardiovascular: Denies chest pain, Denies shortness of breath - Respiratory Respiratory: Denies cough, Denies 7 - Gastrointestinal Gastrointestinal: Denies abdominal pain, Denies diarrhea, Denies nausea, Denies vomiting - Genitourinary (Female) Genitourinary: Denies dysuria, Denies hematuria - Genitourinary (Male) Genitourinary: Denies dysuria, Denies hematuria - Musculoskeletal Musculoskeletal: Denies myalgias - Integumentary Integumentary: Denies pruritus, Denies rash - Neurological Neurological: Denies numbness, Denies weakness - Psychiatric Psychiatric: Denies anxiety, Denies depression - Endocrine Endocrine: Denies fatigue, Denies weight change Past Medical History Past Medical History: No Reported History Additional Past Medical History / Comment(s): kidney stone History of Any Multi-Drug Resistant Organisms: None Reported Past Surgical History: Back Surgery, Orthopedic Surgery Additional Past Surgical History / Comment(s): Neck and ankle surgery with plates. Past Anesthesia/Blood Transfusion Reactions: No Reported Reaction Past Psychological History: No Psychological Hx Reported Past Alcohol Use History: None Reported Past Drug Use History: None Reported - Past Family History Mother Family Medical History: No Reported History Father Family Medical History: Cancer Additional Family Medical History / Comment(s): Prostate cancer Medications and Allergies Home Medications Medication Instructions Recorded Confirmed Type Eszopiclone [Lunesta] 3 mg PO HS 06/07/16 11/29/18 History Aspirin EC [Ecotrin Low Dose] 162 mg PO ONCE PRN 11/29/18 11/29/18 History Ibuprofen 800 mg PO Q6HR PRN #20 tablet 11/29/18 Rx Irbesartan [Avapro] 75 mg PO DAILY 11/29/18 11/29/18 History HYDROcodone/APAP 5-325MG [[place] 1 tab PO Q4HR PRN 3 Days #18 tab 04/24/19 Rx 5-325] Ketorolac [Toradol] 10 mg PO Q6HR #20 tab 04/24/19 Rx Tamsulosin [Flomax] 0.4 mg PO DAILY #7 cap 04/24/19 Rx ondansetron HCL [Zofran] 4 mg PO Q8H PRN #20 tab 04/24/19 Rx Allergies Allergy/AdvReac Type Severity Reaction Status Date / Time morphine Allergy Rash/Hives Verified 04/24/19 06:53 Surgical - Exam - General mild left flank and upper quadrant pain. well developed, well nourished - ENT no hearing loss - Neck trachea midline - Respiratory normal expansion, normal respiratory effort - Cardiovascular Rhythm: regular - Abdomen Abdomen: soft, tender - Neurologic normal coordination, normal sensation - Musculoskeletal normal gait, normal posture - Psychiatric oriented to time, oriented to person, oriented to place, speech is normal, memory intact Results - Imaging CT scan - abdomen: report reviewed, image reviewed CT scan - pelvis: report reviewed, image reviewed Assessment and Plan Assessment: Impression: left ureteral stone with obstruction and colic Plan: left ureteroscopy with laser lithotripsy
[2022-01-24] MEDS ORDERED: LIDOCAINE 1% (10MG/ML) FOR IV START INTRADERMA ONE (16:08)
[2022-01-24] MEDS ORDERED: LACTATED RINGERS 1,000 ML IV ONE ×4 (16:08→17:45)
[2022-01-24] MEDS ORDERED: ONDANSETRON 4 MG/2 ML VIAL ONE (16:12)
--- NOTE | 2022-01-24 16:13 | XR ---
EXAMINATION TYPE: XR KUB DATE OF EXAM: 01/24/2022 3:55 PM INDICATION: Patient age:Male; 51 years old; Reason for study: PRE-OP RENAL STONES; COMPARISON: CT abdomen pelvis 04/24/2019 TECHNIQUE: One radiographic view of the abdomen was obtained. FINDINGS: Left renal stone in the left renal sinus measuring up to 8 mm. The bowel gas pattern is non specific without dilated loops of small or large bowel. There is no evidence for organomegaly or pneu moperitoneum. The osseous structures are intact. Fecal material and gas are demonstrated throughout the colon and rectum. IMPRESSION: Left renal sinus 8 mm calculus.
[2022-01-24] MEDS ORDERED: DEXAMETHASONE SOD PHOSPHATE 4 MG/ML 1 ML VIAL IVP ONE (16:17)
[2022-01-24] MEDS ORDERED: SUCCINYLCHOLINE CHLORIDE 200 MG/10 ML VIAL IV ONE (16:21)
[2022-01-24] MEDS ORDERED: LIDOCAINE 2% INJ 20 MG/ML (2 ML VIAL) ONE (16:21)
[2022-01-24] MEDS ORDERED: PROPOFOL 10 MG/ML 20 ML VIAL IV ONE (16:21)
[2022-01-24] MEDS ORDERED: fentaNYL (PF) 50 MCG/ML 2 ML AMP ONE (16:21)
[2022-01-24] MEDS ORDERED: FAMOTIDINE 20 MG/2 ML VIAL ONE (16:21)
[2022-01-24] MEDS ORDERED: MIDAZOLAM 2 MG/2 ML VIAL ONE (16:21)
[2022-01-24] MEDS ORDERED: SODIUM CHLORIDE 0.9% 50 ML with ceFAZolin 2,000 MG IV ONE ×2 (16:25)
[2022-01-24] MEDS ORDERED: IOPAMIDOL-370 50ML BTL MISCELLANE ONE (16:42)
--- NOTE | 2022-01-24 17:32 | P.OP ---
Date of Procedure: 01/24/22 Preoperative Diagnosis: Left ureteral calculus Postoperative Diagnosis: Same Procedure(s) Performed: Cystoscopy, left ureteroscopy with laser lithotripsy, placement of 6 x 26 stent Anesthesia: ZEKE Surgeon: Qasim Cam Estimated Blood Loss (ml): 0 Pathology: other (Stone) Condition: stable Disposition: PACU Indications for Procedure: The patient is 51. He has a 5 mm proximal ureteral stone on the left. He is been trying to pass this for 1 month. He comes for ureteroscopy with laser lithotripsy. Alternatives have been discussed Description of Procedure: Patient brought to the operating suite. Given general anesthesia. He's placed lithotomy position with sterile prep and drape. The stone was seen on fluoroscopy. Cystoscopy Foroblique lens and 21-Turkmen sheath identifies a normal urethra. The prostate is not obstructing. The bladder mucosa is unremarkable. The ureters are normal. The left ureteral orifice is intubated with an 035 wire passed into the kidney. I attempted to pass a 74-07-Uxwlux ureteral reentry sheath but I am unable to do so. I then over the wire pass a 5-15-Turkmen dilating balloon and dilated the left ureter. I I then was able to pass the ureteral reentry sheath up to the mid ureter. I then a pass the fl exible ureteroscope but there is a waist distal a stone that is very tight and I'm unable to pass the scope beyond that. I then reintroduced the wire, reintroduced the dilating balloon and dilated the stricture. I then pass the flexible scope up to the stone. The stone was broken into tiny pieces. The larger fragments are basketed. At the end of the procedure there no remaining stones. An 035 wires and passed through the working sheath. The working sheath is removed. I backloaded the wire onto the cystoscope. I then pass a 6 x 26 double-J catheter that coils in the left renal pelvis and in the bladder. The bladder is free to of any stone chips in her sent to pathology. The patient is awakened and returned recovery room good condition. He tolerated procedure well. Blood loss is minimal. He'll be discharged home upon recovery.
[2022-01-24 17:33] VITALS: RESP 16; TEMP 97
[2022-01-24] MEDS ORDERED: HYDROmorphone 0.5 MG/0.5 ML SYRINGE IVP ONE ×5 (17:46→18:55)
[2022-01-24] MEDS ORDERED: KETOROLAC 15 MG/ML 1 ML VIAL IVP ONE (18:23)
[2022-01-24 19:57] VITALS: BP 160/77; PULSE 68
--- NOTE | 2022-01-24 22:15 | FL ---
Fluoroscopy INDICATION: Pain FINDINGS: Fluoroscopy time: 2 minutes 43 seconds. Images obtained: 2. IMPRESSIONS: 1. Documentation of fluoroscopy.
== END 2022-01-24 19:54 | disposition home or self-care (01) ==
LOC: OR 15:46
PROVIDERS: ATTEND Urology
DX: N20.1 Calculus of ureter (principal); Z87.442 Personal history of urinary calculi; Z80.42 Family history of malignant neoplasm of prostate; Z79.82 Long term (current) use of aspirin; Z79.899 Other long term (current) drug therapy; Z88.8 Allergy status to other drugs, medicaments and biological substances
CPT/HCPCS: 82365; 74420; 74018; 52356; C2625; C1758 ×3; C1769 ×2; C1894; J2250; J0330; J1100; J2405; J0690; J3010; J1885; J2704; J1170; Q9967; J2001

== ENCOUNTER 2023-05-02 06:08 | Day surgery (SDC) | payer MEDICARE ==
[~2023-05-02 06:08] MED LIST changes: -DEXAMETHASONE SOD PHOSPHATE 10 MG/ML 1 ML VIAL IV ONE; -HYDROmorphone 1 MG/ML 1 ML SYRINGE IVP PRN; -LACTATED RINGERS 1,000 ML IV SCH; +LIDOCAINE 1% (10MG/ML) FOR IV START INTRADERMA PRN; -LIDOCAINE 1% 20 ML VIAL (10MG/ML) FOR IV START INTRADERMA PRN; -MIDAZOLAM 2 MG/2 ML VIAL IV PRN; -ONDANSETRON 4 MG/2 ML VIAL IVP ONE; -Pre Op ABX Message 1 EACH MISC MISCELLANE ONE; -SCOPOLAMINE 1.5MG/72HR PATCH TRANSDERM ONE
[2023-05-02] MEDS: LACTATED RINGERS 1,000 ML IV SCH (06:55)
[2023-05-02] MEDS ORDERED: fentaNYL (PF) 50 MCG/ML 2 ML AMP ONE (06:59)
[2023-05-02] MEDS ORDERED: MIDAZOLAM 2 MG/2 ML VIAL ONE (06:59)
[2023-05-02] MEDS ORDERED: PROPOFOL 10 MG/ML 20 ML VIAL IV ONE (06:59)
[2023-05-02 07:08] VITALS: TEMP 97
[2023-05-02 08:14] LABS: Basophils # (A) 0.1 k/uL (0-0.2); Basophils % (A) 1 %; Eosinophils # (A) 0.3 k/uL (0-0.7); Eosinophils % (A) 4 %; HCT 54.7 % (39.0-53.0); HGB 18.8 gm/dL (13.0-17.5); Lymphocytes # (A) 1.9 k/uL (1.0-4.8); Lymphocytes % (A) 24 %; MCHC 34.3 g/dL (31.0-37.0); MCV 90.1 fL (80.0-100.0); Mean Platelet Volume 7.9; Monocytes # (A) 0.4 k/uL (0-1.0); Monocytes % (A) 5 %; Neutrophils # (A) 5.1 k/uL (1.3-7.7); Neutrophils % (A) 65 %; Platelet Count 381 k/uL (150-450); RBC 6.07 m/uL (4.30-5.90); RDW 14.1 % (11.5-15.5); WBC 7.9 k/uL (3.8-10.6)
[2023-05-02 08:16] LABS: Reticulocyte % 2.3 % (0.5-2.0)
[2023-05-02 08:19] VITALS: BP 120/71; PULSE 53; RESP 18
--- NOTE | 2023-05-02 09:07 | OP ---
OPERATIVE REPORT DATE OF SERVICE : 05/02/2023 PROCEDURE: Bone marrow aspirate and biopsy. PREOPERATIVE DIAGNOSIS: Myeloproliferative disorder. POSTOPERATIVE DIAGNOSIS: Myeloproliferative disorder. ANESTHESIA: Local with IV systemic sedation. DETAILS: Utilizing sterile technique, the skin overlying the right iliac crest was prepared with Betadine and alcohol. After adequate sterile draping, local anesthesia with 1% lidocaine and systemic sedation size 11 4-inch Jamshidi needle was utilized to access the periosteum with ease. A total of 15 mL of aspirate and 4 cm bone core biopsies were obtained. The patient tolerated the procedure very well. There was no immediate procedure related complication. Total blood loss less than 1 mL. Results pending. MMODL / IJN: [id number] /
== END 2023-05-02 08:00 | disposition home or self-care (01) ==
LOC: OR 06:08
PROVIDERS: ATTEND Internal Medicine Hematology & Oncology
DX: D47.1 Chronic myeloproliferative disease (principal); I10 Essential (primary) hypertension; F17.210 Nicotine dependence, cigarettes, uncomplicated; Z88.5 Allergy status to narcotic agent; Z79.01 Long term (current) use of anticoagulants; Z79.899 Other long term (current) drug therapy
CPT/HCPCS: 85025; 85045; 38222; J2250; J3010; J2704

== ENCOUNTER → 2023-12-29 | Outpatient (CLI) | payer MEDICARE ==
--- NOTE | 2023-12-29 08:22 | XR ---
EXAMINATION TYPE: XR KUB DATE OF EXAM: 12/29/2023 7:53 AM COMPARISON: 01/24/2022 CLINICAL INDICATION: Male, 53 years old with history of N20.0 CALCULUS OF KIDNEY; [facility] TECHNIQUE: One radiographic view of the abdomen was obtained. FINDINGS: The bowel gas pattern is nonspecific without dilated loops of small or large bowel. . Fecal material and gas are demonstrated throughout the colon and rectum. There is no evidence for organomegaly or pneumoperitoneum. The osseous structures are intact. No ab normal calcifications are present. IMPRESSION: Left-sided calculus not definitively visualized. [facility], , 12/29/2023 8:20 AM
== END | disposition home or self-care (01) ==
LOC: RADXRMAIN 07:43
PROVIDERS: ATTEND Family Medicine
DX: N20.0 Calculus of kidney (principal); Z87.442 Personal history of urinary calculi
CPT/HCPCS: 74018

== ENCOUNTER 2024-02-06 07:49 | Day surgery (SDC) | payer MEDICARE ==
[2024-02-06] MEDS: IV FLUID CONTINUATION 1,000 ML IV ONE ×2 (08:41→09:03)
[2024-02-06] MEDS: LACTATED RINGERS 1,000 ML IV SCH (08:42)
[2024-02-06] MEDS ORDERED: PROPOFOL 10 MG/ML 20 ML VIAL IV ONE (09:04)
[2024-02-06] MEDS ORDERED: LIDOCAINE 1% INJ 10MG/ML (20 ML MDV) ONE (09:04)
[2024-02-06] MEDS ORDERED: fentaNYL (PF) 50 MCG/ML 2 ML AMP ONE (09:04)
--- NOTE | 2024-02-06 09:28 | P.PCN ---
Date of Procedure: 02/06/24 Procedure(s) Performed: BRIEF HISTORY: Patient is a 53-year-old pleasant male scheduled for an elective colonoscopy as a part of evaluation by history of colon polyps. PROCEDURE PERFORMED: Colonoscopy with cold snare polypectomy. PREOPERATIVE DIAGNOSIS: History of colon polyps. IV sedation per Anesthesia. PROCEDURE: After informed consent was obtained, the patient, was brought into the endoscopy unit. IV sedation was administered by Anesthesia under continuous monitoring. Digital rectal examination was normal. Initially the Olympus CF-160 flexible video colonoscope was then inserted in the rectum, gradually advanced into the cecum without any difficulty. Careful examination was performed as the scope was gradually being withdrawn. Ileocecal valve and the appendiceal orifice were visualized and appeared normal. Prep was poor in some areas of the colon.. Mucosa of the cecum, ascending colon, transverse colon, descending colon, appeared normal. The distal sigmoid colon there was a 5 mm polyp that was removed by cold snare polypectomy. Rest of the sigmoid colon, and rectum appeared normal. Retroflexion was performed in the rectum and no lesions were seen. The patient tolerated the procedure well. IMPRESSION: 5 mm sigmoid colon polyp status post cold snare polypectomy Rest of the colon appeared normal RECOMMENDATIONS: Findings of this examination were discussed with the patient as well as his family. He was advised to follow with the biopsy results. Recommend a repeat colonoscopy in 5 years.
[2024-02-06 09:50] VITALS: BP 120/80; PULSE 53; RESP 16
== END 2024-02-06 10:13 ==
LOC: ORWHC2ENDO 07:49
PROVIDERS: ATTEND Internal Medicine Gastroenterology
DX: K63.5 Polyp of colon (principal); I10 Essential (primary) hypertension; Z89.449 Acquired absence of unspecified ankle; Z90.89 Acquired absence of other organs; Z88.5 Allergy status to narcotic agent; Z79.899 Other long term (current) drug therapy
CPT/HCPCS: 88305; 45385; J2003; J3010; J2704

== ENCOUNTER → 2024-04-20 | Outpatient (CLI) | payer MEDICARE ==
[~2024-04-20] MED LIST changes: -LIDOCAINE 1% (10MG/ML) FOR IV START INTRADERMA PRN; +SODIUM CHLORIDE 0.9% 250 ML in EMPTY BAG 1 BAG IV PRN; +SODIUM CHLORIDE 0.9% 500 ML 500 ML in EMPTY BAG 1 BAG IV PRN
[2024-04-20 07:56] VITALS: PULSE 47; RESP 18; TEMP 97.5
[2024-04-20 08:07] LABS: Anisocytosis Slight; Basophils % (A) 1 %; Eosinophils # (A) 0.2 k/uL (0-0.7); Eosinophils % (A) 3 %; HCT 50.3 % (39.0-53.0); HGB 15.6 gm/dL (13.0-17.5); Hypochromasia Moderate; Lymphocytes # (A) 1.8 k/uL (1.0-4.8); Lymphocytes % (A) 26 %; MCHC 31.1 g/dL (31.0-37.0); MCV 70.7 fL (80.0-100.0); Mean Platelet Volume 7.8; Microcytosis Marked; Monocytes # (A) 0.3 k/uL (0-1.0); Monocytes % (A) 5 %; Neutrophils # (A) 4.5 k/uL (1.3-7.7); Neutrophils % (A) 65 %; Platelet Count 388 k/uL (150-450)
[2024-04-20 08:15] LABS: RBC 7.11 m/uL (4.30-5.90)
== END ==
LOC: PROCWHC3 07:28
PROVIDERS: ATTEND Internal Medicine Hematology & Oncology
DX: D75.1 Secondary polycythemia (principal)
CPT/HCPCS: 36415; 85025; 99195

== ENCOUNTER → 2024-05-03 | Outpatient (CLI) | payer MEDICARE | END | disposition home or self-care (01) | LOC: LABWHC1 15:23 | PROVIDERS: ATTEND Family Medicine | DX: R97.20 Elevated prostate specific antigen [PSA] (principal) | CPT/HCPCS: 36415; 84153 ==

== ENCOUNTER → 2024-06-21 | Outpatient (CLI) | payer MEDICARE ==
[2024-06-21 08:01] VITALS: RESP 16; TEMP 97.9
[2024-06-21 08:07] LABS: Basophils # (A) 0.08 10*3/uL (0.00-0.10); Basophils % (A) 1.2 %; Eosinophils % (A) 6.2 %; Lymphocytes # (A) 1.43 10*3/uL (0.90-5.00); Lymphocytes % (A) 22.1 %; MCH 23.1 pg (27.0-32.0); MCV 72.2 fL (80.0-97.0); Mean Platelet Volume 9.4 fL (9.5-12.2); Monocytes # (A) 0.33 10*3/uL (0.20-1.00); Monocytes % (A) 5.1 %; Neutrophils # (A) 4.21 10*3/uL (1.80-7.70); Neutrophils % (A) 65.1 %; Platelet Count 382 10*3/uL (140-440); RBC 6.93 10*6/uL (4.40-5.60); RDW 19.4 % (11.5-14.5); WBC 6.47 10*3/uL (4.50-10.00)
[2024-06-21 08:27] VITALS: BP 149/92; PULSE 52
== END ==
LOC: PROCWHC3 07:47
PROVIDERS: ATTEND Internal Medicine Hematology & Oncology
DX: D75.1 Secondary polycythemia (principal)
CPT/HCPCS: 36415; 85025; 99195

== ENCOUNTER 2024-06-25 18:04 | Emergency (ER) | payer MEDICARE ==
[2024-06-25 20:54] LABS: Basophils # (A) 0.06 10*3/uL (0.00-0.10); Basophils % (A) 0.6 %; Eosinophils # (A) 0.07 10*3/uL (0.04-0.35); Eosinophils % (A) 0.7 %; HCT 49.8 % (39.6-50.0); Lymphocytes # (A) 0.83 10*3/uL (0.90-5.00); Lymphocytes % (A) 8.5 %; MCHC 32.1 g/dL (32.0-37.0); MCV 71.4 fL (80.0-97.0); Mean Platelet Volume 9.3 fL (9.5-12.2); Monocytes # (A) 0.31 10*3/uL (0.20-1.00); Monocytes % (A) 3.2 %; Neutrophils # (A) 8.52 10*3/uL (1.80-7.70); Neutrophils % (A) 86.7 %; Platelet Count 388 10*3/uL (140-440); RBC 6.97 10*6/uL (4.40-5.60); RDW 19.9 % (11.5-14.5); WBC 9.82 10*3/uL (4.50-10.00)
--- NOTE | 2024-06-25 20:56 | ED ---
General Adult HPI - General Chief complaint: Nausea/Vomiting/Diarrhea Stated complaint: dizziness,vomiting Time Seen by Provider: 06/25/24 18:22 Source: patient, RN notes reviewed Mode of arrival: wheelchair Limitations: no limitations - History of Present Illness Initial comments: This is a 54-year-old male with history of back/neck pain presenting with dizziness x 2 months. Patient endorses associated headache and nausea/vomiting. Patient states intermittent dizziness for started following insertion of temporary pain stimulator leads into his spinal canal in April [address] Kaur in [place]. States symptoms persisted following insertion of permanent pain stimulator in May 2024. States symptoms have been manageable for the past 2 weeks before worsening in the last several days. States the soonest he can see the surgeon for a possible MRI is 07/19/2024. States he has had some relief with Tylenol/ibuprofen. Denies fever, chills, neck stiffness, chest pain, dyspnea, sensation of room spinning with head movement, vision changes, abdominal pain, hematemesis, hearing changes. Onset/Timin -: month(s) Associated Symptoms: headaches, nausea/vomiting, other (Dizziness) - Related Data Home Medications Medication Instructions Recorded Confirmed Eszopiclone [Lunesta] 3 mg PO HS 06/07/16 06/21/24 Irbesartan [Avapro] 75 mg PO HS 11/29/18 06/21/24 Previous Rx's Medication Instructions Recorded Meclizine [Antivert] 25 mg PO Q8H PRN #15 tab 06/25/24 Ondansetron [Zofran] 4 mg PO Q8HR PRN #15 tab 06/25/24 Allergies Allergy/AdvReac Type Severity Reaction Status Date / Time morphine Allergy Rash/Hives Verified 06/25/24 18:15 Review of Systems ROS Statement: Those systems with pertinent positive or pertinent negative responses have been documented in the HPI. ROS Other: All systems not noted in ROS Statement are negative. Past Medical History Past Medical History: Blood Disorder Additional Past Medical History / Comment(s): kidney stone.ERTHROCYTOSIS. History of Any Multi-Drug Resistant Organisms: None Reported Past Surgical History: Back Surgery, Orthopedic Surgery Additional Past Surgical History / Comment(s): Neck and ankle surgery with plates, stimulator Past Anesthesia/Blood Transfusion Reactions: No Reported Reaction Past Psychological History: No Psychological Hx Reported Smoking Status: Former smoker - Past Family History Mother Family Medical History: No Reported History Father Family Medical History: Cancer Additional Family Medical History / Comment(s): Prostate cancer General Exam Limitations: no limitations General appearance: alert, in no apparent distress (Patient lying on left side with eyes closed, stating positioning with eyes closed helps with dizziness) Head exam: Present: atraumatic, normocephalic, normal inspection Eye exam: Present: normal appearance, PERRL, EOMI. Absent: scleral icterus, conjunctival injection, periorbital swelling ENT exam: Present: normal exam, mucous membranes moist Neck exam: Present: normal inspection. Absent: tenderness, meningismus, lymphadenopathy Respiratory exam: Present: normal lung sounds bilaterally. Absent: respiratory distress, wheezes, rales, rhonchi, stridor Cardiovascular Exam: Present: regular rate, normal rhythm, normal heart sounds. Absent: systolic murmur, diastolic murmur, rubs, gallop, clicks GI/Abdominal exam: Present: soft, normal bowel sounds. Absent: distended, tenderness, guarding, rebound, rigid Extremities exam: Present: normal inspection, full ROM, normal capillary refill. Absent: tenderness, pedal edema, joint swelling, calf tenderness Back exam: Present: other (Surgically placed pain stimulator noted under skin of right lower back with well-healed surgical incision site. Vertical surgical incision site where leads were placed for stimulator over the thoracic spine appears well-healed without overlying erythema, warmth or tenderness). Absent: tenderness, paraspinal tenderness, vertebral tenderness Neurological exam: Present: alert, oriented X3, CN II-XII intact (Cranial nerves tested and intact), other (Burdick stroke reveals no concerning findings. Cerebellar testing including [id number], NURA, heelshin unremarkable.) Psychiatric exam: Present: normal affect, normal mood Skin exam: Present: warm, dry, intact, normal color. Absent: rash Course Vital Signs 06/25/24 06/25/24 06/25/24 18:07 22:08 23:00 Temperature 98.0 F 97.6 F Pulse Rate 60 60 59 L Respiratory 17 18 18 Rate Blood Pressure 161/105 144/85 133/84 O2 Sat by Pulse 97 98 96 Oximetry Medical Decision Making - Medical Decision Making Was pt. sent in by a medical professional or institution (Dr., PA, SKATESMAN, urgent care, hospital, or skilled nursing...) When possible be specific @ -No Did you speak to anyone other than the patient for history (EMS, parent, family, police, friend...)? What history was obtained from this source @ -No Did you review nursing and triage notes (agree or disagree)? Why? @ -I reviewed and agree with nursing and triage notes Were old charts reviewed (outside hosp., previous admission, EMS record, old EKG, old radiological studies, urgent care reports/EKG's, skilled nursing records)? Report findings @ -No old charts were reviewed Differential Diagnosis (chest pain, altered mental status, abdominal pain women, abdominal pain men, vaginal bleeding, weakness, fever, dyspnea, syncope, headache, dizziness, GI bleed, back pain, seizure, CVA, palpatations, mental health, musculoskeletal)? @ -Differential Dizziness: Benign paroxysmal positional Vertigo, Meniere's disease, otitis media, acoustic neuroma, vertebrobasilar insufficiency, cerebellar stroke, encephalitis, hypovolemic, arrhythmia, coronary artery syndrome, anemia, this is not meant to be an all-inclusive list EKG interpreted by me (3pts min.). @ -Sinus bradycardia with mild intraventricular conduction delay. No ST deviation or T wave inversion. Ventricular rate 59 bpm, FILIPE 112 ms, QRS 114 ms, QTc 438 ms. X-rays interpreted by me (1pt min.). @ -CXR shows no acute cardiopulmonary process CT interpreted by me (1pt min.). @ -None done U/S interpreted by me (1pt. min.). @ -None done What testing was considered but not performed or refused? (CT, X-rays, U/S, labs)? Why? @ -None What meds were considered but not given or refused? Why? @ -None Did you discuss the management of the patient with other professionals (professionals i.e. HUSEYIN Torres, SKATESMAN, lab, RT, psych nurse, social work program coordinator, case consultant, teacher, air defense control officer, case consultant)? Give summary @ -No Was smoking cessation discussed for >3mins.? @ -No Was critical care preformed (if so, how long)? @ -No Were there social determinants of health that impacted care today? How? (Homelessness, low income, unemployed, alcoholism, drug addiction, transportation, low edu. Level, literacy, decrease access to med. care, senior living, rehab)? @ -No Was there de-escalation of care discussed even if they declined (Discuss DNR or withdrawal of care, Hospice)? DNR status @ -No What co-morbidities impacted this encounter? (DM, HTN, Smoking, COPD, CAD, Cancer, CVA, ARF, Chemo, Hep., AIDS, mental health diagnosis, sleep apnea, morbid obesity)? @ -None Was patient admitted / discharged? Hospital course, mention meds given and route, prescriptions, significant lab abnormalities, going to OR and other per tinent info. @ -Lab work shows normal hemoglobin 16.0, iron deficient anemia 71.4 MCV and elevated neutrophils 8.52 decreased PT/INR 12.6/1.2. Hyperglycemia 133 and hyper calcium at 10.5. Kidney function, LFT and amylase/lipase within normal limits. Negative troponin. CXR shows no acute cardiopulmonary process. Patient provided IV normal saline, Zofran and p.o. meclizine with some relief of symptoms. Meclizine and Zofran sent to patient's pharmacy. Advised follow-up with surgeon for MRI to determine possible CSF leakage at surgical site. Discussed patient with Dr. Almaraz. Undiagnosed new problem with uncertain prognosis? @ -No Drug Therapy requiring intensive monitoring for toxicity (Heparin, Nitro, Insulin, Cardizem)? @ -No Were any procedures done? @ -No Diagnosis/symptom? @ -Dizziness Acute, or Chronic, or Acute on Chronic? @ -Acute Uncomplicated (without systemic symptoms) or Complicated (systemic symptoms)? @ -Complicated Side effects of treatment? @ -No Exacerbation, Progression, or Severe Exacerbation? @ -No Poses a threat to life or bodily function? How? (Chest pain, [place], [place], pneumonia, PE, COPD, DKA, ARF, appy, cholecystitis, CVA, Diverticulitis, Homicidal, Suicidal, threat to staff... and all critical care pts) @ -No - Lab Data Result diagrams: 06/25/24 19:51 06/25/24 19:51 Lab Results 06/25/24 06/25/24 06/25/24 Range/Units 19:51 19:51 19:51 WBC 9.82 (4.50-10.00) 10*3/uL RBC 6.97 H (4.40-5.60) 10*6/uL Hgb 16.0 (13.0-17.0) g/dL Hct 49.8 (39.6-50.0) % MCV 71.4 L (80.0-97.0) fL MCH 23.0 L (27.0-32.0) pg MCHC 32.1 (32.0-37.0) g/dL Plt Count 388 (140-440) 10*3/uL MPV 9.3 L (9.5-12.2) fL Immature Gran % (Auto) 0.3 % Neutrophils % 86.7 % Lymphocytes % 8.5 % Monocytes % 3.2 % Eosinophils % 0.7 % Basophils % 0.6 % Immature Gran # 0.03 (0.00-0.04) 10*3/uL Neutrophils # 8.52 H (1.80-7.70) 10*3/uL Lymphocytes # 0.83 L (0.90-5.00) 10*3/uL Monocytes # 0.31 (0.20-1.00) 10*3/uL Eosinophils # 0.07 (0.04-0.35) 10*3/uL Basophils # 0.06 (0.00-0.10) 10*3/uL Manual Slide Review Performed PT (10.0-12.5) sec INR (<1.2) APTT (22.0-30.0) sec Sodium 140 (137-145) mmol/L Potassium 4.6 (3.5-5.1) mmol/L Chloride 105 (98-107) mmol/L Carbon Dioxide 24 (22-30) mmol/L Anion Gap 11 mmol/L BUN 18 (9-20) mg/dL Creatinine 1.20 (0.66-1.25) mg/dL Est GFR (CKD-EPI)AfAm 78 (>60 ml/min/1.73 sqM) Est GFR (CKD-EPI)NonAf 68 (>60 ml/min/1.73 sqM) Glucose 133 H (74-99) mg/dL Calcium 10.5 H (8.4-10.2) mg/dL Magnesium (1.6-2.3) mg/dL Total Bilirubin 1.2 (0.2-1.3) mg/dL AST 46 (17-59) U/L ALT 40 (4-49) U/L Alkaline Phosphatase 91 (38-126) U/L Troponin I <0.012 (0.000-0.034) ng/mL Total Protein 7.6 (6.3-8.2) g/dL Albumin 4.8 (3.5-5.0) g/dL Amylase 49 (30-110) U/L Lipase 53 (23-300) U/L 06/25/24 06/25/24 Range/Units 19:51 19:52 WBC (4.50-10.00) 10*3/uL RBC (4.40-5.60) 10*6/uL Hgb (13.0-17.0) g/dL Hct (39.6-50.0) % MCV (80.0-97.0) fL MCH (27.0-32.0) pg MCHC (32.0-37.0) g/dL Plt Count (140-440) 10*3/uL MPV (9.5-12.2) fL Immature Gran % (Auto) % Neutrophils % % Lymphocytes % % Monocytes % % Eosinophils % % Basophils % % Immature Gran # (0.00-0.04) 10*3/uL Neutrophils # (1.80-7.70) 10*3/uL Lymphocytes # (0.90-5.00) 10*3/uL Monocytes # (0.20-1.00) 10*3/uL Eosinophils # (0.04-0.35) 10*3/uL Basophils # (0.00-0.10) 10*3/uL Manual Slide Review PT 12.6 H (10.0-12.5) sec INR 1.2 H (<1.2) APTT 25.1 (22.0-30.0) sec Sodium (137-145) mmol/L Potassium (3.5-5.1) mmol/L Chloride (98-107) mmol/L Carbon Dioxide (22-30) mmol/L Anion Gap mmol/L BUN (9-20) mg/dL Creatinine (0.66-1.25) mg/dL Est GFR (CKD-EPI)AfAm (>60 ml/min/1.73 sqM) Est GFR (CKD-EPI)NonAf (>60 ml/min/1.73 sqM) Glucose (74-99) mg/dL Calcium (8.4-10.2) mg/dL Magnesium 1.9 (1.6-2.3) mg/dL Total Bilirubin (0.2-1.3) mg/dL AST (17-59) U/L ALT (4-49) U/L Alkaline Phosphatase (38-126) U/L Troponin I (0.000-0.034) ng/mL Total Protein (6.3-8.2) g/dL Albumin (3.5-5.0) g/dL Amylase (30-110) U/L Lipase (23-300) U/L Disposition Clinical Impression: Dizziness Disposition: HOME SELF-CARE Condition: Fair Instructions (If sedation given, give patient instructions): Dizziness (ED) Additional Instructions: Return to ER if experiencing worsening dizziness, headache, nausea/vomiting. Follow-up with surgeon/neurology for ongoing management and workup. Prescriptions: Meclizine [Antivert] 25 mg PO Q8H PRN #15 tab PRN Reason: Vertigo Ondansetron [Zofran] 4 mg PO Q8HR PRN #15 tab PRN Reason: Nausea Is patient prescribed a controlled substance at d/c from ED?: No Referrals: Sp Connors DO [Primary Care Provider] - 1-2 days Tracy Álvarez MD [STAFF PHYSICIAN] - 1-2 days Time of Disposition: 21:51
[2024-06-25 21:04] LABS: INR 1.2 (<1.2); Partial Thromboplastin Time 25.1 sec (22.0-30.0); Prothrombin Time 12.6 sec (10.0-12.5)
[2024-06-25 21:07] LABS: ALT 40 U/L (4-49); AST 46 U/L (17-59); African American GFR (CKD) 78 (>60 ml/min/1.73 sqM); Albumin 4.8 g/dL (3.5-5.0); Alkaline Phosphatase 91 U/L (38-126); Amylase 49 U/L (30-110); Anion Gap 11 mmol/L; Blood Urea Nitrogen 18 mg/dL (9-20); Calcium 10.5 mg/dL (8.4-10.2); Carbon Dioxide 24 mmol/L (22-30); Chloride 105 mmol/L (98-107); Glucose 133 mg/dL (74-99); Lipase 53 U/L (23-300); Non-African American GFR(CKD) 68 (>60 ml/min/1.73 sqM); Potassium 4.6 mmol/L (3.5-5.1); Sodium 140 mmol/L (137-145); Total Bilirubin 1.2 mg/dL (0.2-1.3); Total Protein 7.6 g/dL (6.3-8.2)
--- NOTE | 2024-06-25 21:34 | XR ---
EXAMINATION TYPE: XR chest 2V DATE OF EXAM: 06/25/2024 9:31 PM COMPARISON: Prior chest radiograph most recently dated 12/01/2018. CLINICAL INDICATION: Male, 54 years old with history of Dizziness; [facility] TECHNIQUE: XR chest 2V Frontal and lateral views of the chest. FINDINGS: Lungs/Pleura: There is no evidence of pleural effusion, focal consolidation, or pneumothorax. Pulmonary vascularity: Unremarkable. Heart/mediastinum: Cardiomediastinal silhouette is unremarkable. Musculoskeletal: No acute osseous pathology. Other findings: None IMPRESSION: No acute cardiopulmonary disease/process. [facility], , 06/25/2024 9:32 PM
[2024-06-25] MEDS: SODIUM CHLORIDE 0.9% 1,000 ML IV STA (22:07)
[2024-06-25] MEDS: ONDANSETRON 4 MG/2 ML VIAL IVP STA (22:09)
[2024-06-25 22:12] VITALS: RESP 18
[2024-06-25] MEDS: MECLIZINE 12.5 MG TAB PO STA (22:17)
[2024-06-25 23:06] VITALS: BP 133/84; PULSE 59; TEMP 97.6
== END 2024-06-25 23:11 | disposition home or self-care (01) ==
LOC: EC 18:04
DX: R42 Dizziness and giddiness (principal); Z87.891 Personal history of nicotine dependence; Z88.5 Allergy status to narcotic agent
CPT/HCPCS: 36415; 93005; 80053; 82150; 83690; 83735; 84484; 85025; 85610; 85730; 71046; 99284; 96374; 96361; J2405

== ENCOUNTER → 2024-08-16 | Outpatient (CLI) | payer MEDICARE ==
[2024-08-16 08:03] VITALS: RESP 16; TEMP 97.6
[2024-08-16 08:14] LABS: Basophils # (A) 0.08 10*3/uL (0.00-0.10); Basophils % (A) 1.3 %; Eosinophils # (A) 0.28 10*3/uL (0.04-0.35); Eosinophils % (A) 4.5 %; HCT 49.9 % (39.6-50.0); HGB 16.2 g/dL (13.0-17.0); Lymphocytes # (A) 1.55 10*3/uL (0.90-5.00); Lymphocytes % (A) 24.8 %; MCH 23.3 pg (27.0-32.0); MCHC 32.5 g/dL (32.0-37.0); MCV 71.7 fL (80.0-97.0); Monocytes # (A) 0.34 10*3/uL (0.20-1.00); Monocytes % (A) 5.4 %; Neutrophils # (A) 3.97 10*3/uL (1.80-7.70); Neutrophils % (A) 63.5 %; Platelet Count 360 10*3/uL (140-440); RBC 6.96 10*6/uL (4.40-5.60); RDW 18.6 % (11.5-14.5); WBC 6.25 10*3/uL (4.50-10.00)
[2024-08-16 08:30] VITALS: BP 173/100; PULSE 46
== END ==
LOC: PROCWHC3 07:46
PROVIDERS: ATTEND Internal Medicine Hematology & Oncology
DX: D75.1 Secondary polycythemia (principal)
CPT/HCPCS: 36415; 85025; 99195